=== PATIENT | female | born 1930 | race African-American/Black ===

== ENCOUNTER → 2016-09-13 | Outpatient (CLI) | payer MEDICARE ==
[~2016-09-13] MED LIST: AMLO5TAB2 PO; AMLO5TAB22 PO; ASPI1TAB69 PO; BRIM.15%O BOTH EYES; CHOL50006 PO; COUM4TAB7 PO; COUM5TAB PO; DIGO0.12 PO; DIGO50SO PO; ERGO1CAP10 PO; FOLI1 PO; FOLI1TAB4 PO; FURO40TA PO; LATA.005%O EACH EYE; LATA.005%O OU; LORA-474 PO; LORA2TAB7 PO; OMEP20CA5 PO; OMEP20TA PO; POTA-243 PO; POTA10TA8 PO; SERT25TA83 PO; ZOLO25TA PO
[2016-09-13 12:32] LABS: AUTOMATED NEUTROPHIL # 3.3 TH/MM3 (1.8-7.7); BASOPHIL % 0.2 % (0.0-2.0); EOSINOPHIL # 0.4 TH/MM3 (0-0.4); EOSINOPHIL % 5.5 % (0.0-4.0); HEMATOCRIT 35.7 % (35.0-46.0); LYMPH % 33.3 % (9.0-44.0); LYMPHOCYTE # 2.2 TH/MM3 (1.0-4.8); MEAN CORPUSCULAR HEMOGLOBIN 20.2 PG (27.0-34.0); MEAN CORPUSCULAR HGB CONC 30.5 % (32.0-36.0); MONO % 9.8 % (0.0-8.0); NEUT % 51.2 % (16.0-70.0); PLATELET COUNT 316 TH/MM3 (150-450); RED BLOOD COUNT 5.41 MIL/MM3 (4.00-5.30); WHITE BLOOD COUNT 6.5 TH/MM3 (4.0-11.0)
[2016-09-13 12:37] LABS: HEMO FLAGS AUTO DIFF
[2016-09-13 12:47] LABS: BACTERIA, URINE RARE /hpf; BLOOD, URINE NEG (NEG); GLUCOSE,URINE NEG (NEG); KETONE, URINE NEG (NEG); MUCUS URINE FEW /lpf (OCC); NITRITE,URINE NEG (NEG); SQUAMOUS EPITHELIAL CELL URINE 1 /hpf (0-5); URINE COLOR YELLOW (YELLW/STRAW)
[2016-09-13 12:54] LABS: BICARBONATE 29.3 MEQ/L (21.0-32.0); POTASSIUM 3.5 MEQ/L (3.5-5.1)
[2016-09-13 13:48] LABS: ACANTHOCYTES OCC (NORMAL)
[2016-09-13 13:49] LABS: KERATOCYTES 1+ (NORMAL); OVALOCYTES 1+ (NORMAL); PLATELET ESTIMATE SMEAR NORMAL (NORMAL); PLATELET MORPHOLOGY NORMAL (NORMAL); SCAN/DIFF AUTO DIFF CONFIRMED
== END ==
LOC: CPRE 11:13
PROVIDERS: ATTEND Obstetrics & Gynecology
DX: Z01.812 Encounter for preprocedural laboratory examination (principal); N84.0 Polyp of corpus uteri
CPT/HCPCS: 36415; 80048; 81001; 85025

== ENCOUNTER → 2016-09-19 | Day surgery (SDC) | payer MEDICARE ==
[~2016-09-19] VITALS: Ht 157.5 cm; Wt 67.5 kg
[~2016-09-19] MED LIST changes: -AMLO5TAB22 PO; -BRIM.15%O BOTH EYES; -CHOL50006 PO; -COUM4TAB7 PO; -COUM5TAB PO; +DEXAMETHASONE SOD PHOS 4 MG/ML VIAL ONE; -DIGO50SO PO; +DO NOT ADM ANY ANTICOAGULANT DRUGS XX PRN; +FAMOTIDINE 20 MG/2 ML VIAL ONE; -FOLI1 PO; +INSULIN HUMAN REGULAR 1,000 UNITS/10 ML VIAL SQ PRN; +LACTATED RINGER'S 1000 ML INJ 1,000 ML IV ONE; +LACTATED RINGER'S 1000 ML IV SCH; -LATA.005%O OU; -LORA-474 PO; +METOPROLOL TARTRATE 25 MG TAB PO PRN; +MIDAZOLAM HCL 2 MG/2 ML VIAL ONE; -OMEP20CA5 PO; +ONDANSETRON HCL 4 MG/2 ML VIAL IV PUSH ONE; +OXYTOCIN 10 UNIT/ML AMP ONE; +PHENYLEPH/NS 1000 MCG/10 ML SYR IV ONE; -POTA-243 PO; +PROPOFOL 200 MG/20 ML AMP IV ONE; +SODIUM CHLORID 0.9% 500 ML IV SCH; -ZOLO25TA PO; +ceFAZolin 2 GM PREMIX 50 ML IV SCH; +fentaNYL CITRATE 250 MCG/5 ML AMP ONE
[2016-09-19 07:11] VITALS: BP 142/78; PULSE 64; RESP 18; TEMP 98; O2SAT 98
[2016-09-19 13:10] VITALS: BP 163/69; PULSE 70; RESP 20; TEMP 97.4; O2SAT 94
--- NOTE | 2016-09-20 08:47 | MP ---
cc: MARV LOOMIS MD DATE OF SURGERY: 09/19/2016 PREOPERATIVE DIAGNOSIS Postmenopausal bleeding, thickened endometrium, stenotic cervix. POSTOPERATIVE DIAGNOSIS Postmenopausal bleeding, thickened endometrium, stenotic cervix. PROCEDURE Examination under anesthesia, hysteroscopy, D&C, polypectomy with MyoSure. SURGEON Dr. Loomis ANESTHESIA General via a laryngeal mask. FLUIDS 1000 cc crystalloids. ESTIMATED BLOOD LOSS Minimal. URINE OUTPUT 100 cc on straight cath prior to procedure. FINDINGS Uterus was approximately 8-10 weeks in size. No adnexal masses. At hysteroscopy two polypoid lesions were noted. DETAILS OF PROCEDURE The patient was taken to the operating room where general anesthesia was found to be adequate. She was then prepped and draped in the normal sterile fashion in the dorsal lithotomy position. The urinary bladder was emptied of urine using sterile technique. A speculum was placed in the vagina. A single-tooth tenaculum was applied to the anterior lip of the cervix. The cervix was gently dilated with Fuad dilators sizes 9 through 18. Hysteroscopy was then performed with saline to distend. Two polypoid lesions were noted and these were resected with the MyoSure device. A D&C was also done with the MyoSure device. The specimen was sent to pathology. The hysteroscope was removed. The single-tooth tenaculum was removed. Hemostasis was noted. The speculum was removed. The fluid deficit was 570 cc. The patient was awakened from anesthesia and transferred to the recovery room in stable condition. Pathology was endometrial curettings and the instrument count was correct. MD WAI Stern/CHAD /11:53 AM /8:33 AM
== END | disposition home or self-care (01) ==
LOC: HSDC 05:56
PROVIDERS: ATTEND Obstetrics & Gynecology
DX: N95.0 Postmenopausal bleeding (principal); R93.8 Abnormal findings on diagnostic imaging of other specified body structures; N88.2 Stricture and stenosis of cervix uteri
CPT/HCPCS: 00952; 58558; 86850; 86900; 86901; 88305; J0690; J1100; J2250; J2370; J2405; J2590; J3010; J7120

== ENCOUNTER 2017-12-24 00:47 | Inpatient (IN) | payer MEDICARE ==
[~2017-12-24] VITALS: Ht 162.6 cm; Wt 61.4 kg
[2017-12-24] VITALS (25 sets, daily range): BP systolic 96–149; BP diastolic 53–97; PULSE 92–148; RESP 18–30; TEMP 97–98.4; O2SAT 94–100
[~2017-12-24 00:47] MED LIST changes: -DEXAMETHASONE SOD PHOS 4 MG/ML VIAL ONE; -DO NOT ADM ANY ANTICOAGULANT DRUGS XX PRN; -FAMOTIDINE 20 MG/2 ML VIAL ONE; -INSULIN HUMAN REGULAR 1,000 UNITS/10 ML VIAL SQ PRN; -LACTATED RINGER'S 1000 ML INJ 1,000 ML IV ONE; -LACTATED RINGER'S 1000 ML IV SCH; -METOPROLOL TARTRATE 25 MG TAB PO PRN; -MIDAZOLAM HCL 2 MG/2 ML VIAL ONE; -OMEP20TA PO; +OMEP20TA93 PO; -ONDANSETRON HCL 4 MG/2 ML VIAL IV PUSH ONE; -OXYTOCIN 10 UNIT/ML AMP ONE; -PHENYLEPH/NS 1000 MCG/10 ML SYR IV ONE; -PROPOFOL 200 MG/20 ML AMP IV ONE; -SODIUM CHLORID 0.9% 500 ML IV SCH; -ceFAZolin 2 GM PREMIX 50 ML IV SCH; -fentaNYL CITRATE 250 MCG/5 ML AMP ONE
[2017-12-24] MEDS ORDERED: DILT120C9 PO (00:56)
[2017-12-24] MEDS ORDERED: WARF-23 PO (00:58)
[2017-12-24] MEDS ORDERED: RESP: ALBUTEROL 2.5 MG/IPRATROPIUM 0.5 MG NEB (SCH) NEB ONE ×2 (01:00→04:15)
[2017-12-24] MEDS: METOPROLOL TARTRATE 5 MG/5 ML VIAL IV PUSH PRN ×3 (01:01→02:02)
[2017-12-24 01:17] LABS: HEMATOCRIT 31.1 % (35.0-46.0); HEMOGLOBIN 9.4 GM/DL (11.6-15.3); MEAN CORPUSCULAR HEMOGLOBIN 18.1 PG (27.0-34.0); MEAN CORPUSCULAR HGB CONC 30.2 % (32.0-36.0); MEAN PLATELET VOLUME 9.2 FL (7.0-11.0); PLATELET COUNT 338 TH/MM3 (150-450); RED BLOOD COUNT 5.17 MIL/MM3 (4.00-5.30); RED CELL DISTRIBUTION WIDTH 22.2 % (11.6-17.2); WHITE BLOOD COUNT 5.8 TH/MM3 (4.0-11.0)
[2017-12-24 01:25] LABS: INTERNATIONAL NORMALIZED RATIO 1.5 RATIO; PROTHROMBIN TIME - PATIENT 14.9 SEC (9.8-11.6)
--- NOTE | 2017-12-24 01:25 | PD ---
HPI Chief Complaint: Respiratory Symptoms Time Seen by Provider: 00:52 Travel History International Travel<30 days: No Contact w/Intl Traveler<30days: No History of Present Illness HPI The patient is an 87 year old female who presents to the [facility] emergency department with a history of coughing suddenly began when she was eating an orange earlier this afternoon. She reports that she was able to cough up the piece of orange that seemed to get stuck in her throat, however she continued to have symptoms of shortness of breath. Ambulance services were called and the patient was noted to have a heart rate in the 180s. The patient has a history of atrial fibrillation. She reports that she has not been taking her rate lowering medication as she was told not to do so by her primary care physician, Dr. Aldrich. She is unsure why she was told not to take her medicine. The patient reports that she does have problems with chronic intermittent shortness of breath. She is unsure what respiratory diagnosis she has been given in the past. The patient reports that she did smoke in the past , however she quit smoking 40 years ago. The patient denies having any chest pain. The patient initially was refusing transport by ambulance services, however she then agreed when she nearly passed out. The patient was provided Cardizem 20 mg IV prior to arrival. The patient on arrival to this facility denies having any chest pain. She denies having any known recent fevers, neck pain, abdominal pain, vomiting, diarrhea, urinary symptoms, or neurologic symptoms. PFSH Past Medical History Narrative Medical The patient's past medical history is obtained from the patient as well as from reviewing the electronic medical record and consists of glaucoma, cataracts, rheumatoid arthritis, atrial fibrillation, acid reflux, hypertension, osteoporosis. Arthritis: Yes Anxiety: Yes Depression: Yes Heart Rhythm Problems: Yes ( AFIB) Cancer: No Cardiovascular Problems: Yes (irregular heart) Diabetes: No Diminished Hearing: No Endocrine: No Gastrointestinal Disorders: Yes (hx of stomach ulcers) Genitourinary: No Hepatitis: No Hiatal Hernia: No Hypertension: Yes Immune Disorder: Yes (rheumatoid arthritis) Medical other: Yes (LUMP RIGHT BREAST) Musculoskeletal: Yes (arthritis) Neurologic: No Psychiatric: Yes (ANXIETY AND DEPRESSION) Reproductive: No Respiratory: No Thyroid Disease: No Influenza Vaccination: Yes Menopausal: Yes Past Surgical History Narrative Surgical The patient's past surgical history is significant for venous stripping of her legs, history of shoulder excision of soft tissue tumor, eye surgery Abdominal Surgery: No AICD: No Cardiac Surgery: No Ear Surgery: No Endocrine Surgery: No Eye Surgery: Yes (RIGHT EYE CATARACT) Genitourinary Surgery: No Gynecologic Surgery: No Joint Replacement: No Neurologic Surgery: Yes (VEIN STRIPPING) Oral Surgery: No Pacemaker: No Thoracic Surgery: No Other Surgery: Yes (RIGHT SHOULDER TUMOR REMOVAL; LEFT LEG VEIN STRIPPING) Social History Alcohol Use: No Tobacco Use: No Substance Use: No Allergies-Medications (Allergen,Severity, Reaction): Coded Allergies: No Known Allergies (Verified Allergy, Unknown, 12/24/17) Reported Meds & Prescriptions Reported Meds & Active Scripts Active Reported Metoprolol Tartrate 50 Mg Tab 50 Mg PO BID Warfarin 5 Mg Tab 5 Mg PO DAILY Diltiazem ER 12 HR (Diltiazem HCl) 120 Mg Caper 180 Mg PO BID Sertraline (Sertraline HCl) 25 Mg Tab 25 Mg PO DAILY Lorazepam 2 Mg Tab 2 Mg PO BID Xalatan Opth Drops (Latanoprost) 0.005% Drops 1 Drop EACH EYE HS Furosemide 40 Mg Tab 40 Mg PO DAILY PRN Review of Systems General / Constitutional: No: Fever Eyes: No: Visual changes HENT: No: Headaches, Rhinorrhea, Congestion Cardiovascular: Positive: Tachycardia, Dyspnea on exertion, No: Chest Pain or Discomfort Respiratory: Positive: Cough, Shortness of Breath, Wheezing Gastrointestinal: No: Nausea, Vomiting, Diarrhea, Abdominal Pain Genitourinary: No: Dysuria Musculoskeletal: No: Pain Skin: No Rash Neurologic: No: Weakness Psychiatric: No: Depression Endocrine: No: Polydipsia Hematologic/Lymphatic: No: Easy Bruising Physical Exam Narrative General: The patient is a well-developed well-nourished female, short of breath on arrival with conversational dyspnea. Head and Neck exam: Head is normocephalic atraumatic. Eyes: EOMI, pupils are equal round and reactive to light. Nose: Midline septum with pink mucous membranes Mouth: Dentition unremarkable. Moist mucus membranes. Posterior oropharynx is not erythematous. No tonsillar hypertrophy. Uvula midline. Airway patent. Neck: No palpable lymphadenopathy. No nuchal rigidity. No thyromegaly. Cardiovascular: Irregularly irregular with a rate in the 140s-150s without murmurs, gallops, or rubs. Lungs: Expiratory wheezes are audible in bilateral lung, decreased breath sounds in the bases bilaterally. The patient has coarse upper airway transmission and auscultated posteriorly. The patient has accessory muscle use noted. The patient has tachypnea with conversational dyspnea, no paroxysmal abdominal breathing or tripoding. Abdomen: Soft, without tenderness to palpation in all 4 quadrants of the abdomen. No guarding, rebound, or rigidity. Normal bowel sounds are audible. No tenderness on palpation of McBurney's point. Extremities: No clubbing or cyanosis. The patient has trace pedal edema. 2+ pulses in all 4 extremities. No calf tenderness on palpation. Back: No spinous process tenderness to palpation. No costovertebral angle tenderness to palpation. Neurologic Exam: Grossly nonfocal. Skin Exam: No rash noted. Intact skin that is warm and dry. Data Data Last Documented VS Vital Signs Date Time Temp Pulse Resp B/P (MAP) Pulse Ox O2 Delivery O2 Flow Rate FiO2 12/24/17 02:43 117 20 110/53 (72) 98 Nasal Cannula 2.00 12/24/17 00:51 98.1 Orders Orders Electrocardiogram (12/24/17 00:52) Complete Blood Count With Diff (12/24/17 00:52) Comprehensive Metabolic Panel (12/24/17 00:52) Creatine Kinase (Cpk) (12/24/17 00:52) Ckmb (Isoenzyme) Profile (12/24/17 00:52) Troponin I (12/24/17 00:52) B-Type Natriuretic Peptide (12/24/17 00:52) Prothrombin Time / Inr (Pt) (12/24/17:52) Act Partial Throm Time (Ptt) (12/24/17 00:52) Lipase (12/24/17 00:52) Magnesium (Mg) (12/24/17 00:52) Thyroid Stimulating Hormone (12/24/17 00:52) Chest, Single Ap (12/24/17 00:52) Iv Access Insert/Monitor (12/24/17 00:52) Ecg Monitoring (12/24/17 00:52) Oximetry (12/24/17 00:52) Metoprolol Tartrate Inj (Lopressor Inj) (12/24/17 01:00) Albuterol-Ipratropium Neb (Duoneb Neb) (12/24/17 01:00) CKMB (12/24/17 01:05) CKMB% (12/24/17 01:05) Nitroglycerin 2% Oint (Nitroglycerin 2% (12/24/17 02:15) Aspirin Chew (Aspirin Chew) (12/24/17 02:15) Admit Order (Ed Use Only) (12/24/17 02:44) Labs Laboratory Tests Test 12/24/17 01:05 White Blood Count 5.8 TH/MM3 Red Blood Count 5.17 MIL/MM3 Hemoglobin 9.4 GM/DL Hematocrit 31.1 % Mean Corpuscular Volume 60.0 FL Mean Corpuscular Hemoglobin 18.1 PG Mean Corpuscular Hemoglobin Concent 30.2 % Red Cell Distribution Width 22.2 % Platelet Count 338 TH/MM3 Mean Platelet Volume 9.2 FL CBC Comment AUTO DIFF Differential Total Cells Counted 100 Neutrophils % (Manual) 91 % Lymphocytes % 7 % Monocytes % 2 % Neutrophils # (Manual) 5.3 TH/MM3 Differential Comment FINAL DIFF MANUAL Platelet Estimate NORMAL Platelet Morphology Comment NORMAL Acanthocytes 2+ Keratocytes OCC Prothrombin Time 14.9 SEC Prothromb Time International Ratio 1.5 RATIO Activated Partial Thromboplast Time 22.6 SEC Blood Urea Nitrogen 14 MG/DL Creatinine 1.09 MG/DL Random Glucose 191 MG/DL Total Protein 7.4 GM/DL Albumin 3.4 GM/DL Calcium Level 8.4 MG/DL Magnesium Level 2.0 MG/DL Alkaline Phosphatase 136 U/L Aspartate Amino Transf (AST/SGOT) 56 U/L Alanine Aminotransferase (ALT/SGPT) 68 U/L Total Bilirubin 0.6 MG/DL Sodium Level 142 MEQ/L Potassium Level 3.5 MEQ/L Chloride Level 107 MEQ/L Carbon Dioxide Level 20.5 MEQ/L Anion Gap 15 MEQ/L Estimat Glomerular Filtration Rate 58 ML/MIN Total Creatine Kinase 166 U/L Creatine Kinase MB 7.6 NG/ML Troponin I 0.59 NG/ML B-Type Natriuretic Peptide 466 PG/ML Lipase 107 U/L Thyroid Stimulating Hormone 3rd Gen 1.770 uIU/ML MDM Medical Decision Making Medical Screen Exam Complete: Yes Emergency Medical Condition: Yes Medical Record Reviewed: Yes Differential Diagnosis A. fib with RVR, versus COPD exacerbation, versus congestive heart failure, versus pneumonia, versus aspiration Narrative Course During the course of the patient's emergency department visit, the patient's history, examination, and differential diagnosis were reviewed with the patient. The patient was placed on a shelter monitor with oximetry and frequent blood pressure monitoring. The patient had IV access obtained and blood work sent for analysis. The patient had a EKG done on arrival that shows A. fib with RVR, heart rate of 153, QRS duration 71 ms, QTC [address] segment elevation is noted. T waves are inverted in V5 The patient was initially provided a DuoNeb x1. The patient was given metoprolol 5 mg every 5 minutes x3 as needed sustained heart rate greater than 110. The patient's laboratory studies were reviewed and remarkable for White count of 5.8, hemoglobin 9.4, platelets 338 with 91 neutrophils, lymphocytes 7, CMP is remarkable for CO2 of 20.5, BUN 14, creatinine 1.09, GFR 58, glucose 191, AST 56, ALT 68, alk phos 136, CPK 166, troponin I is elevated at 0.59. Lipase 107, TSH within normal limits, BNP is elevated at 466. Given the patient's elevated troponin the patient was given aspirin 324 mg p.o. The patient was given nitroglycerin 1 inch the chest wall. She denies having any chest pain currently. PT 14.9, INR 1.5, PTT 22.6. Radiology studies were reviewed and remarkable for Last Impressions Chest X-Ray 12/24/17 0052 Signed Impressions: CONCLUSION: 1. Enlarged cardiac silhouette. 2. Mild peripheral lower lung zone opacity may represent chronic lung disease, scarring, or atelectasis. After the administration of metoprolol IV the patient's heart rate was ranging between the 90s-110s. The patient's shortness of breath improved. While the patient was being observed in the emergency department the patient had a recurrence of shortness of breath. The patient was given another DuoNeb x1. The patient additionally reports regularly taking Ativan 2 mg p.o. every 12 hours for anxiety. She reports feeling anxious and is requesting Ativan. The patient was given Ativan 1 mg p.o. x1. The patient's results were discussed with the patient, including the plan of care. I explained that further testing and/ or monitoring is indicated based on the patient's history, examination, and/ or laboratory findings. Therefore, I recommended admission for additional evaluation. The patient expressed understanding and was agreeable with this plan. The patient was admitted to the hospital in guarded condition and sent to a bed under the care of the [facility] Critical Care Narrative Aggregate critical care time was 34 minutes. Time to perform other separately billable procedures was not included in the critical care time. My time did not include minutes spent treating any other patients simultaneously or on activities that did not directly contribute to the patient's treatment. The services I provided to this patient were to treat and/or prevent clinically significant deterioration that could result in: Cardiovascular collapse from cardiac arrhythmia, versus respiratory failure I provided critical care services requiring my management, as noted below: Chart data review, documentation time, medication orders and management, vital sign assessments/reviewing monitor data, ordering and reviewing lab tests, ordering and interpreting/reviewing x-rays and diagnostic studies, care of the patient and discussion of the patient with the admitting physicians. Physician Communication Physician Communication The patient's case including history, pertinent physical examination findings, and laboratory studies were discussed with Dr. Baires. It was agreed that the patient would be admitted to the [facility]. Diagnosis Primary Impression: Atrial fibrillation with RVR Additional Impression: Elevation of cardiac enzymes Admitting Information Admitting Physician Requests: Admit Elizabeth Ryan MD Dec 24, 2017 01:25
[2017-12-24] MEDS ORDERED: METO50TA PO (01:26)
--- NOTE | 2017-12-24 01:27 | RADRPT ---
EXAM DATE: 12/24/2017 1:18 AM EDT AGE/SEX: 87 years / Female INDICATIONS: Shortness of breath. CLINICAL DATA: This is the patient's initial encounter. Patient reports that signs and symptoms have been present for 1 day and indicates a pain score of 0/10. MEDICAL/SURGICAL HISTORY: . Afib. None. COMPARISON: No prior exams available for comparison. FINDINGS: Single AP view of the chest. Moderate cardiac silhouette enlargement. Mild bilateral lower lung zone opacity at the periphery. No evidence of pleural effusion or pneumothorax. CONCLUSION: 1. Enlarged cardiac silhouette. 2. Mild peripheral lower lung zone opacity may represent chronic lung disease, scarring, or atelecta sis. Electronically signed by: David Stokes MD 12/24/2017 1:25 AM EDT
[2017-12-24 01:40] LABS: ALBUMIN 3.4 GM/DL (3.4-5.0); AST (GOT) 56 U/L (15-37); BICARBONATE 20.5 MEQ/L (21.0-32.0); BLOOD UREA NITROGEN 14 MG/DL (7-18); CALCIUM 8.4 MG/DL (8.5-10.1); CHLORIDE 107 MEQ/L (98-107); CREATININE 1.09 MG/DL (0.50-1.00); GLOMERULAR FILTRATION RATE 58 ML/MIN (>89); GLUCOSE,RANDOM 191 MG/DL (74-106); SODIUM (NA) 142 MEQ/L (136-145)
[2017-12-24 01:51] LABS: ALKALINE PHOSPHATASE 136 U/L (45-117); ALT (GPT) 68 U/L (10-53); TOTAL BILIRUBIN ADULT 0.6 MG/DL (0.2-1.0); TOTAL PROTEIN 7.4 GM/DL (6.4-8.2); TROPONIN I 0.59 NG/ML (0.02-0.05)
[2017-12-24 02:14] LABS: LYMPHOCYTES 7 % (9-44); MONOCYTES 2 % (0-8); NEUTROPHIL # MANUAL DIFF 5.3 TH/MM3 (1.8-7.7); POLYS (SEG NEUTROPHILS) 91 % (16-70)
[2017-12-24] MEDS ORDERED: ASPIRIN 81 MG CHEW TAB CHEW ONE (02:15)
[2017-12-24] MEDS ORDERED: NITROGLYCERIN 2% OINT 1 GM PACKET TOPICAL ONE (02:15)
[2017-12-24 02:17] LABS: ACANTHOCYTES 2+ (NORMAL); KERATOCYTES OCC (NORMAL)
[2017-12-24] MEDS ORDERED: METOPROLOL TARTRATE 25 MG TAB PO SCH ×2 (03:00→08:00)
[2017-12-24] MEDS ORDERED: SODIUM CHLORIDE 0.9% FLUSH 10 ML FLUSH IV FLUSH PRN (03:00)
[2017-12-24] MEDS ORDERED: LORazepam 1 MG TAB PO ONE (04:45)
--- NOTE | 2017-12-24 07:57 | HHI.HP ---
HPI Service [facility] Hospitalists Primary Care Physician Kareem Aldrich MD Admission Diagnosis Afib with RVR, elevated troponin Chief Complaint: cough Travel History International Travel<30 Days: No Contact w/Intl Traveler <30 Da: No Traveled to Known Affected Are: No History of Present Illness Pt is 87 yo woman who says she was recently diagnosed with breast ca in right breast and is awaiting lumpectomy. She describes more sob and intermittent cp's and says she was seeing her park guard Dr Moralez who was going to "run some tests". Last night she failed to chew up an orange and started choking. When EMS arrived she was in afib/rvr 180s. IV diltiazem given and sbp 80s. In ED she was given 3 doses iv metoprolol and one po dose. her ckmb and trop was elevated. She acknowledges intermittent cp's and sob at times. 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 lipoma removal. anxiety htn postmenopausal bleeding microcytic anemia Reported Medications diltiazem 180mg daily metoprolol 50mg bid coumadin 5mg daily ativan 1mg bid prn sertraline 25mg daily lasix 40mg qod with kcl 10meq Allergies: Coded Allergies: No Known Allergies (Verified Allergy, Unknown, 12/24/17) Family History nc Social History no etoh no tob x 40yrs Physical Exam Vital Signs nad oriented heart irreg. tachy lung cta abd s/nt ext no edema Vital Signs Date Time Temp Pulse Resp B/P (MAP) Pulse Ox O2 Delivery O2 Flow Rate FiO2 12/24/17 07:44 95 21 12/24/17 06:07 12/24/17 05:12 118 18 96/72 (80) 96 Nasal Cannula 2.00 12/24/17 04:06 97 Nasal Cannula 2.00 12/24/17 03:33 108 18 97 Nasal Cannula 2.00 12/24/17 03:30 128 18 102/86 (91) 96 Nasal Cannula 2.00 12/24/17 02:43 117 20 110/53 (72) 98 Nasal Cannula 2.00 12/24/17 02:24 108 20 105/65 (78) 98 Nasal Cannula 2.00 12/24/17 02:18 101 18 105/66 (79) 97 Nasal Cannula 2.00 12/24/17 02:02 125 22 115/78 (90) 98 Nasal Cannula 2.00 12/24/17 01:28 114 26 117/79 (92) 99 Nasal Cannula 2.00 12/24/17 01:04 95 Nasal Cannula 2.00 12/24/17 01:04 120 12/24/17 00:51 98.1 148 30 149/97 (114) 94 Nasal Cannula 2.00 Laboratory Laboratory Tests Test 12/24/17 01:05 White Blood Count 5.8 Red Blood Count 5.17 Hemoglobin 9.4 Hematocrit 31.1 Mean Corpuscular Volume 60.0 Mean Corpuscular Hemoglobin 18.1 Mean Corpuscular Hemoglobin Concent 30.2 Red Cell Distribution Width 22.2 Platelet Count 338 Mean Platelet Volume 9.2 CBC Comment AUTO DIFF Differential Total Cells Counted 100 Neutrophils % (Manual) 91 Lymphocytes % 7 Monocytes % 2 Neutrophils # (Manual) 5.3 Differential Comment FINAL DIFF MANUAL Platelet Estimate NORMAL Platelet Morphology Comment NORMAL Acanthocytes 2+ Keratocytes OCC Prothrombin Time 14.9 Prothromb Time International Ratio 1.5 Activated Partial Thromboplast Time 22.6 Blood Urea Nitrogen 14 Creatinine 1.09 Random Glucose 191 Total Protein 7.4 Albumin 3.4 Calcium Level 8.4 Magnesium Level 2.0 Alkaline Phosphatase 136 Aspartate Amino Transf (AST/SGOT) 56 Alanine Aminotransferase (ALT/SGPT) 68 Total Bilirubin 0.6 Sodium Level 142 Potassium Level 3.5 Chloride Level 107 Carbon Dioxide Level 20.5 Anion Gap 15 Estimat Glomerular Filtration Rate 58 Total Creatine Kinase 166 Creatine Kinase MB 7.6 Troponin I 0.59 B-Type Natriuretic Peptide 466 Lipase 107 Thyroid Stimulating Hormone 3rd Gen 1.770 Result Diagram: 12/24/1710412/24/17 010 Caprini VTE Risk Assessment Caprini VTE Risk Assessment: Mod/High Risk (score >= 2) Caprini Risk Assessment Model Point Value = 1 Point Value = 2 Point Value = 3 Point Value = 5 Age 41-60 Minor surgery BMI > 25 kg/m2 Swollen legs Varicose veins or History of unexplained or recurrent spontaneous Oral contraceptives or hormone replacement Sepsis (< 1 month) Serious lung disease, including pneumonia (< 1 month) Abnormal pulmonary function Acute myocardial infarction Congestive heart failure (< 1 month) History of inflammatory bowel disease Medical patient at bed rest Age 61-74 Arthroscopic surgery Major open surgery (> 45 min) Laparoscopic surgery (> 45 min) Malignancy Confined to bed (> 72 hours) Immobilizing plaster cast Central venous access Age >= 75 History of VTE Family history of VTE Factor V Leiden Prothrombin [id number] Lupus anticoagulant Anticardiolipin antibodies Elevated serum homocysteine Heparin-induced thrombocytopenia Other congenital or acquired thrombophilia Stroke (< 1 month) Elective arthroplasty Hip, pelvis, or leg fracture Acute spinal cord injury (< 1 month) Prophylaxis Regimen Total Risk Factor Score Risk Level Prophylaxis Regimen 0-1 Low Early ambulation 2 Moderate Order ONE of the following: *Sequential Compression Device (SCD) *Heparin 5000 units SQ BID 3-4 Higher Order ONE of the following medications: *Heparin 5000 units SQ TID *Enoxaparin/Lovenox 40 mg SQ daily (WT < 150 kg, CrCl > 30 mL/min) *Enoxaparin/Lovenox 30 mg SQ daily (WT < 150 kg, CrCl > 10-29 mL/min) *Enoxaparin/Lovenox 30 mg SQ BID (WT < 150 kg, CrCl > 30 mL/min) AND/OR *Sequential Compression Device (SCD) 5 or more Highest Order ONE of the following medications: *Heparin 5000 units SQ TID (Preferred with Epidurals) *Enoxaparin/Lovenox 40 mg SQ daily (WT < 150 kg, CrCl > 30 mL/min) *Enoxaparin/Lovenox 30 mg SQ daily (WT < 150 kg, CrCl > 10-29 mL/min) *Enoxaparin/Lovenox 30 mg SQ BID (WT < 150 kg, CrCl > 30 mL/min) AND *Sequential Compression Device (SCD) Assessment and Plan Problem List: (1) Atrial fibrillation with RVR ICD Codes: I48.91 - Unspecified atrial fibrillation Status: Acute Plan: 1. afib/rvr after coughing on an orange. hypotensive on arrival 2. 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 worsening microcytic anemia. s/p EUA/hysteroscopy, D/C, polypectomy for post menopausal bleeding in 2017 4. anxiety plan will consult her park guard. has upcoming surgery for breast ca. will check [facility] EHR repeat cardiac enzymes are pending. resume her bb and ccb as bp allows for afib echo pending. check iron studies resume coumadin. check inr. subtherapeutic. (2) Elevation of cardiac enzymes ICD Codes: R74.8 - Abnormal levels of other serum enzymes Status: Acute (3) Microcytic anemia ICD Codes: D50.9 - Iron deficiency anemia, unspecified Status: Chronic (4) Breast CA ICD Codes: C50.919 - Malignant neoplasm of unspecified site of unspecified female breast Status: Chronic (5) Anxiety ICD Codes: F41.9 - Anxiety disorder, unspecified Status: Chronic Physician Certification 2 Midnight Certification Type: Admission for Inpatient Services Order for Inpatient Services 3The services are ordered in accordance with Medicare regulations or non- Medicare payer requirements, as applicable. In the case of services not specified as inpatient-only, they are appropriately provided as inpatient services in accordance with the 2-midnight benchmark. Estimated LOS (days): 3 3 days is the estimated time the patient will need to remain in the hospital, assuming treatment plan goals are met and no additional complications. Post-Hospital Plan: Home Ruddy Mcdowell MD Dec 24, 2017 07:57
[2017-12-24] MEDS ORDERED: LORazepam 1 MG TAB PO PRN (08:00)
[2017-12-24] MEDS: SERTRALINE HCL 50 MG TAB PO SCH (09:03)
[2017-12-24] MEDS: SODIUM CHLORIDE 0.9% FLUSH 10 ML FLUSH IV FLUSH SCH ×2 (09:05→21:45)
[2017-12-24] MEDS ORDERED: DIGOXIN 0.5 MG/2 ML VIAL IVS STA (11:44)
--- NOTE | 2017-12-24 12:04 | MB ---
cc: Jaun Colvin MD DATE: 12/24/2017 INDICATION: Atrial fibrillation. HISTORY OF PRESENT ILLNESS: This is an 87-year-old female who follows with Dr. Moralez, my partner, in the outpatient setting. She recently was diagnosed with breast cancer in the right breast and is waiting to undergo lumpectomy. She last saw Dr. Moralez in the office on 12/18/2017. At that time, she was noted to be in atrial fibrillation with rapid ventricular rate and her metoprolol was titrated. She now presents to the emergency department with episodes of palpitations after choking on an orange. She was noted to have atrial fibrillation with rapid rates as high as 180 beats per minute. She was given intravenous diltiazem, which dropped her blood pressure down to systolic 80s mmHg. She has since been given some metoprolol. Heart rate looked slightly better, but blood pressure is on the low side. She is quite short of breath. PAST MEDICAL HISTORY: Atrial fibrillation, hypertension, hyperlipidemia, breast cancer, lipoma removal, anxiety, hypertension. REPORTED MEDICATIONS: 1. Diltiazem. 2. Metoprolol. 3. Coumadin. 4. Ativan. 5. Sertraline. 6. Lasix. ALLERGIES: NO KNOWN DRUG ALLERGIES. FAMILY HISTORY: Denies any history of early coronary disease or sudden cardiac . SOCIAL HISTORY: Denies any alcohol or drug use. Report no tobacco use for the last 40 years. REVIEW OF SYSTEMS: A 12-point review of systems was performed and is negative unless as otherwise noted in the history of present illness. PHYSICAL EXAMINATION: VITAL SIGNS: Temperature is 97, heart rate is anywhere from 108-134 beats per minute. Blood pressure is 96/72 mmHg. GENERAL: Alert and oriented x 3 in no acute distress. HEENT: Exam shows pupils reactive to light and accommodation. Extraocular movements are intact. NECK: No elevation of jugular venous distention. No thyromegaly. No lymphadenopathy, no carotid bruits. LUNGS: Shows bibasilar minimal crackles. CARDIOVASCULAR: Irregularly irregular with a 2/6 holosystolic murmur at the apex radiating to the axilla. ABDOMEN: Nontender, nondistended with good bowel sounds. No hepatosplenomegaly. EXTREMITIES: Show trace edema. No clubbing or cyanosis. NEUROLOGIC: Cranial nerves intact. Motor and sensory grossly intact. LABORATORIES: Sodium 142, potassium 3.5, BUN is 14, creatinine is 1.09, troponin 0.59. AST 56, ALT 68. B-type natriuretic peptide 466. INR is 1.5. WBC 5.0, hemoglobin is 9.4, platelet counts 338. Electrocardiogram. Atrial fibrillation, rapid ventricular rate, nonspecific ST-T wave abnormalities. Echocardiogram. Her last echocardiogram was performed 09/10/2014 showed normal left ventricular systolic function with an ejection fraction of 55-60 percent. There is moderate tricuspid, moderate mitral regurgitation and mild to moderate pulmonary hypertension. ASSESSMENT: 1. Atrial fibrillation with rapid ventricular rate. 2. 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 3. Elevated troponin. 4. Hypotension. PLAN: We will repeat transthoracic echocardiogram. She does have moderate valve disease and left atrial enlargement. This is likely one of the major precipitating factors to her atrial fibrillation. She is also short of breath. She does have moderate valve disease documented in 2014 and minimal bibasilar crackles. Her creatinine is normal. We will give her a dose of Lasix to see if we can take a little bit of fluid off. She is currently on diltiazem 30 mg q.i.d. and metoprolol 25 mg q. 8 hours, but her blood pressure is on the low side and will not tolerate much in terms of titration. We will add digoxin. Monitor digoxin levels closely. Troponin is likely demand mediated. Given her age and her current status, I would like to avoid any potential ischemic workup unless the troponin trends up further. We can always consider doing even an outpatient evaluation, but will hopefully hold off requiring any ischemic workup at this time until she makes further recovery. Jaun Colvin MD EMILEE/DL , 11:43 AM , 12:04 PM
[2017-12-24] MEDS: FUROSEMIDE 40 MG/4 ML VIAL IV PUSH SCH (13:01)
[2017-12-24] MEDS: DILTIAZEM HCL 30 MG TAB PO SCH ×3 (13:02→22:40)
[2017-12-24 13:41] LABS: ALBUMIN 3.2 GM/DL (3.4-5.0); ALKALINE PHOSPHATASE 114 U/L (45-117); ALT (GPT) 81 U/L (10-53); AST (GOT) 83 U/L (15-37); BLOOD UREA NITROGEN 18 MG/DL (7-18); CALCIUM 8.6 MG/DL (8.5-10.1); CHLORIDE 107 MEQ/L (98-107); CREATININE 1.23 MG/DL (0.50-1.00); GLOMERULAR FILTRATION RATE 50 ML/MIN (>89); GLUCOSE,RANDOM 107 MG/DL (74-106); SODIUM (NA) 141 MEQ/L (136-145); TOTAL BILIRUBIN ADULT 0.6 MG/DL (0.2-1.0); TOTAL PROTEIN 7.1 GM/DL (6.4-8.2)
[2017-12-24 13:43] LABS: TROPONIN I 2.49 NG/ML (0.02-0.05)
[2017-12-24] MEDS ORDERED: DIGOXIN 0.5 MG/2 ML VIAL IV PUSH ONE (14:45)
--- NOTE | 2017-12-24 14:49 | EKG ---
Date Performed: 12/24/2017 Time Performed: 00:51:50 PTAGE: 87 years EKG: ATRIAL FIBRILLATION WITH RAPID VENTRICULAR RESPONSE WITH ABERRANT CONDUCTION OR VENTRICULAR PREMATURE COMPLEXES BORDERLINE RIGHT AXIS DEVIATION NONSPECIFIC T-WAVE ABNORMALITY ABNORMAL RHYTHM E CG Since the PREVIOUS TRACING , no significant change noted PREVIOUS TRACIN06/02/2009 @22.27 DOCTOR: Shawn John Interpretating Date/Time 12/24/2017 14:47:31
[2017-12-24 15:01] LABS: HEMATOCRIT 31.6 % (35.0-46.0); HEMOGLOBIN 9.8 GM/DL (11.6-15.3); MEAN CELL VOLUME 60.5 FL (80.0-100.0); MEAN CORPUSCULAR HEMOGLOBIN 18.7 PG (27.0-34.0); MEAN CORPUSCULAR HGB CONC 30.9 % (32.0-36.0); MEAN PLATELET VOLUME 9.2 FL (7.0-11.0); PLATELET COUNT 273 TH/MM3 (150-450); RED BLOOD COUNT 5.23 MIL/MM3 (4.00-5.30); RED CELL DISTRIBUTION WIDTH 22.2 % (11.6-17.2); WHITE BLOOD COUNT 6.2 TH/MM3 (4.0-11.0)
[2017-12-24 15:23] LABS: % SATURATION IRON PROFILE 4.5 % (20-50); IRON (FE) 20 MCG/DL (50-170); TOTAL IRON BINDING CAPACITY 442 MCG/DL (250-450)
[2017-12-24 15:26] LABS: FERRITIN 18 NG/ML (8-252)
[2017-12-24] MEDS: WARFARIN SOD 5 MG TAB PO SCH (16:00)
[2017-12-24 16:29] LABS: TROPONIN I 2.56 NG/ML (0.02-0.05)
[2017-12-25] VITALS (28 sets, daily range): BP systolic 110–134; BP diastolic 69–93; PULSE 85–124; RESP 17–24; TEMP 97–98.8; O2SAT 92–99
[2017-12-25] MEDS: DILTIAZEM HCL 30 MG TAB PO SCH (04:53)
[2017-12-25 06:40] LABS: INTERNATIONAL NORMALIZED RATIO 1.6 RATIO; PROTHROMBIN TIME - PATIENT 16.3 SEC (9.8-11.6)
[2017-12-25 06:49] LABS: BICARBONATE 24.2 MEQ/L (21.0-32.0); CALCIUM 8.2 MG/DL (8.5-10.1); CREATININE 0.92 MG/DL (0.50-1.00)
[2017-12-25 07:03] LABS: DIGOXIN 1.5 NG/ML (0.8-2.0)
--- NOTE | 2017-12-25 07:49 | HHI.PR ---
Subjective Remarks feels much better. ambulated to bathroom w/out cp/sob Objective Vitals heart irreg lung cta abd s/nt ext no edema Vital Signs Date Time Temp Pulse Resp B/P (MAP) Pulse Ox O2 Delivery O2 Flow Rate FiO2 12/25/17 07:00 95 Room Air 12/25/17 07:00 120 12/25/17 07:00 97.5 124 20 122/86 (98) 95 12/25/17 05:00 93 12/25/17 04:15 97.7 88 17 128/93 (105) 92 12/25/17 04:00 103 12/25/17 03:00 88 12/25/17 02:00 93 12/25/17 01:00 97 12/25/17 00:00 85 12/25/17 00:00 98.8 97 18 128/78 (95) 99 12/24/17 23:00 103 12/24/17 22:00 98 12/24/17 21:00 92 12/24/17 20:00 95 12/24/17 20:00 98.4 93 18 136/76 (96) 98 12/24/17 19:00 104 12/24/17 19:00 98 Room Air 12/24/17 18:00 104 12/24/17 17:26 97.0 93 18 147/89 (108) 99 12/24/17 17:15 112 12/24/17 16:36 97 12/24/17 16:30 98 Room Air 12/24/17 14:00 106 12/24/17 13:42 99 Nasal Cannula 2.00 12/24/17 12:00 116 12/24/17 12:00 98.0 116 25 117/57 (77) 100 12/24/17 10:00 120 12/24/17 08:00 95 Nasal Cannula 2.00 12/24/17 08:00 97.8 126 30 100/70 (80) 100 12/24/17 08:00 134 Result Diagram: 12/24/17 1331 12/25/17 0533 A/P Problem List: (1) Atrial fibrillation with RVR ICD Codes: I48.91 - Unspecified atrial fibrillation Status: Acute Plan: 1. afib/rvr after coughing on an orange. hypotensive on arrival elevated troponin. initially felt to be demand from afib/rvr. but ?nstemi 2. 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 worsening microcytic anemia. s/p EUA/hysteroscopy, D/C, polypectomy for post menopausal bleeding in 2017 4. anxiety plan consulted her medical social worker who is assisting with rate control and ?ischemic w/up bb stopped due to hypotension. cont ccb and dig. titrate up as still with rvr. cont asa cont coumadin. check inr echo pending. check iron studies. venofer if iron def. (2) Elevation of cardiac enzymes ICD Codes: R74.8 - Abnormal levels of other serum enzymes Status: Acute (3) Microcytic anemia ICD Codes: D50.9 - Iron deficiency anemia, unspecified Status: Chronic (4) Breast CA ICD Codes: C50.919 - Malignant neoplasm of unspecified site of unspecified female breast Status: Chronic (5) Anxiety ICD Codes: F41.9 - Anxiety disorder, unspecified Status: Chronic Ruddy Mcdowell MD Dec 25, 2017 07:49
--- NOTE | 2017-12-25 07:50 | PD.CARD.PN ---
Subjective Subjective Remarks feeling well overnight, no chest pain, sob or palpitations. (Jess Singh) Objective Medications Current Medications Medications (Trade) Dose Ordered Sig/Antonella Route Start Time Stop Time Status Last Admin (NS Flush) 2 ml UNSCH PRN IV FLUSH 12/24/17 03:00 (NS Flush) 2 ml BID IV FLUSH 12/24/17 09:00 12/24/17 21:45 (Cardizem) 30 mg Q6HR PO 12/24/17 12:00 12/25/17 04:53 (Ativan) 1 mg Q12H PRN PO 12/24/17 08:00 (Zoloft) 25 mg DAILY PO 12/24/17 09:00 12/24/17 09:03 (Coumadin) 5 mg DAILY@1600 PO 12/24/17 16:00 12/24/17 16:00 (Lasix Inj) 20 mg DAILY IV PUSH 12/24/17 11:45 12/24/17 13:01 (Lanoxin) 0.125 mg DAILY PO 12/25/17 09:00 (Aspirin) 325 mg DAILY PO 12/25/17 09:00 Vital Signs / I&O Vital Signs Date Time Temp Pulse Resp B/P (MAP) Pulse Ox O2 Delivery O2 Flow Rate FiO2 12/25/17 07:00 95 Room Air 12/25/17 07:00 120 12/25/17 07:00 97.5 124 20 122/86 (98) 95 12/25/17 05:00 93 12/25/17 04:15 97.7 88 17 128/93 (105) 92 12/25/17 04:00 103 12/25/17 03:00 88 12/25/17 02:00 93 12/25/17 01:00 97 12/25/17 00:00 85 12/25/17 00:00 98.8 97 18 128/78 (95) 99 12/24/17 23:00 103 12/24/17 22:00 98 12/24/17 21:00 92 12/24/17 20:00 95 12/24/17 20:00 98.4 93 18 136/76 (96) 98 12/24/17 19:00 104 12/24/17 19:00 98 Room Air 12/24/17 18:00 104 12/24/17 17:26 97.0 93 18 147/89 (108) 99 12/24/17 17:15 112 12/24/17 16:36 97 12/24/17 16:30 98 Room Air 12/24/17 14:00 106 12/24/17 13:42 99 Nasal Cannula 2.00 12/24/17 12:00 116 12/24/17 12:00 98.0 116 25 117/57 (77) 100 12/24/17 10:00 120 12/24/17 08:00 95 Nasal Cannula 2.00 12/24/17 08:00 97.8 126 30 100/70 (80) 100 12/24/17 08:00 134 I/O 12/24/17 12/24/17 12/24/17 12/25/17 12/25/17 12/25/17 07:00 15:00 23:00 07:00 15:00 23:00 Intake Total 780 ml 200 ml Output Total 500 ml 200 ml Balance 280 ml 0 ml Intake Oral 760 ml 200 ml IV Total 20 ml Output Urine Total 500 ml 200 ml Physical Exam GENERAL: SKIN: Warm and dry. HEAD: Atraumatic. Normocephalic. EYES: Pupils equal and round. No scleral icterus. No injection or drainage. ENT: No nasal bleeding or discharge. NECK: Trachea midline. No JVD. CARDIOVASCULAR: tachycardic, irregular rate and rhythm, +systolic murmur RESPIRATORY: No accessory muscle use. Clear to auscultation. Breath sounds equal bilaterally. GASTROINTESTINAL: Abdomen soft, non-tender, nondistended. MUSCULOSKELETAL: Extremities without clubbing, cyanosis, or edema. No obvious deformities. NEUROLOGICAL: Awake and alert. No obvious cranial nerve deficits. Normal speech. PSYCHIATRIC: Appropriate mood and affect; insight and judgment normal. Laboratory Laboratory Tests Test 12/24/17 12:15 12/24/17 13:31 12/25/17 05:33 Blood Urea Nitrogen 18 MG/DL 16 MG/DL Creatinine 1.23 MG/DL 0.92 MG/DL Random Glucose 107 MG/DL 104 MG/DL Total Protein 7.1 GM/DL Albumin 3.2 GM/DL Calcium Level 8.6 MG/DL 8.2 MG/DL Alkaline Phosphatase 114 U/L Aspartate Amino Transf (AST/SGOT) 83 U/L Alanine Aminotransferase (ALT/SGPT) 81 U/L Total Bilirubin 0.6 MG/DL Sodium Level 141 MEQ/L 143 MEQ/L Potassium Level 4.6 MEQ/L 4.2 MEQ/L Chloride Level 107 MEQ/L 108 MEQ/L Carbon Dioxide Level 21.0 MEQ/L 24.2 MEQ/L Anion Gap 13 MEQ/L 11 MEQ/L Estimat Glomerular Filtration Rate 50 ML/MIN 70 ML/MIN Troponin I 2.49 NG/ML 2.56 NG/ML White Blood Count 6.2 TH/MM3 Red Blood Count 5.23 MIL/MM3 Hemoglobin 9.8 GM/DL Hematocrit 31.6 % Mean Corpuscular Volume 60.5 FL Mean Corpuscular Hemoglobin 18.7 PG Mean Corpuscular Hemoglobin Concent 30.9 % Red Cell Distribution Width 22.2 % Platelet Count 273 TH/MM3 Mean Platelet Volume 9.2 FL Iron Level 20 MCG/DL Total Iron Binding Capacity 442 MCG/DL Percent Iron Saturation 4.5 % Ferritin 18 NG/ML Total Creatine Kinase 284 U/L Creatine Kinase MB 21.3 NG/ML Creatine Kinase MB % 7.5 % Prothrombin Time 16.3 SEC Prothromb Time International Ratio 1.6 RATIO Digoxin Level 1.5 NG/ML (Jess Singh) Assessment and Plan Problem List: (1) Atrial fibrillation with RVR ICD Codes: I48.91 - Unspecified atrial fibrillation Status: Acute Assessment and Plan 87 yo AAF with HTN, HLD, mitral regurgitation and afib presented with anterior chest discomfort and palpitations found to be in afib rvr. atrial fibrillation- rate remains elevated. increase Cardizem to 60mg q 6 hours , cont digoxin 0.125mg digoxin level ok troponins increasin.5-->2.49-->2.56: rate related vs. ischemic? cont warfarin, INR subtherapeutic 1.5 echo ordered consider ischemic workup. (Jess Singh) Assessment and Plan titrate CCB as BP allows dig 0.125. dig level 1.5. Cr ok. troponin elevated. no CP. no EKG changes. on coumadin. given age and other factors, after lengthy discussion with the patient, she does not wish to proceed with ischemic workup at this time. continue guideline directed medical therapy await echo results no BB due to BP no JEFFREY due to BP no nitrate due to lack of CP if we can get HR < 100 consistently, then DC planning (Jaun Colvin MD) Jess Singh Dec 25, 2017 07:50 Jaun Colvin MD Dec 25, 2017 08:49
[2017-12-25] MEDS: DIGOXIN 0.125 MG TAB PO SCH (08:49)
[2017-12-25] MEDS: SERTRALINE HCL 50 MG TAB PO SCH (08:49)
[2017-12-25] MEDS: ASPIRIN 325 MG TAB PO SCH (08:49)
[2017-12-25] MEDS: SODIUM CHLORIDE 0.9% FLUSH 10 ML FLUSH IV FLUSH SCH ×2 (08:50→21:00)
[2017-12-25] MEDS: FUROSEMIDE 40 MG/4 ML VIAL IV PUSH SCH (08:52)
[2017-12-25] MEDS ORDERED: IRON SUCROSE INJ 100 MG in SODIUM CHLORIDE 0.9% INJ 100 ML IV ONE (09:00)
[2017-12-25] MEDS: DILTIAZEM HCL 60 MG TAB PO SCH ×3 (12:29→23:58)
[2017-12-25] MEDS: WARFARIN SOD 5 MG TAB PO SCH (15:46)
--- NOTE | 2017-12-25 17:04 | ECHRPT ---
Indication: ATRIAL FIB W/RVR CONCLUSIONS Normal left ventricular size. Wall thickness is normal. The left ventricular systolic function is hyperdynamic with an estimated ejection fraction in the ra nge of 65- 70%. The left atrial size is [id number] dilated. The right atrial size is mildly dilated. No atrial level shunt is demonstrated by color flow Doppler interrogation. Moderate mitral valve regurgitation. Mild mitral annular calcification. There is moderate tricuspid regurgitation. The estimated pulmonary arterial pressure is 59 mmHg. Mild pulmonary valve regurgitation. BP: 117 / 57 HR: 106 Rhythm: Sinus MEASUREMENTS (Male / Female) Normal Values Technical Quality:Fair 2D ECHO LV Diastolic Diameter PLAX 3.7 cm 4.2 - 5.9 / 3.9 - 5.3 cm LV Systolic Diameter PLAX 2.5 cm IVS Diastolic Thickness 1.0 cm 0.6 - 1.0 / 0.6 - 0.9 cm LVPW Diastolic Thickness 1.0 cm 0.6 - 1.0 / 0.6 - 0.9 cm LV Relative Wall Thickness 0.5 RV Internal Dim ED PLAX 3.5 cm LVOT Diameter 2.0 cm Aortic Root Diameter 3.7 cm LA Systolic Diameter LX 4.3 cm 3.0 - 4.0 / 2.7 - 3.8 cm M-MODE AV Cusp Separation MM 1.7 cm DOPPLER LVOT Peak Velocity 60.6 cm/s LVOT Peak Gradient 1.5 mmHg LVOT Velocity Time Integral 6.7 cm Mitral E Point Velocity 96.0 cm/s LV E' Lateral Velocity 9.4 cm/s Mitral E to LV E' Lateral Ratio 10.3 LV E' Septal Velocity 6.9 cm/s Mitral E to LV E' Septal Ratio 13.9 TR Peak Velocity 350.0 cm/s TR Peak Gradient 49.0 mmHg Right Atrial Pressure 10.0 mmHg Pulmonary Artery Systolic Pressu 59.0 mmHg Right Ventricular Systolic Press 59.0 mmHg PV Peak Velocity 38.1 cm/s PV Peak Gradient 0.6 mmHg FINDINGS LEFT VENTRICLE Normal left ventricular size. Wall thickness is normal. The left ventricular systolic function is hyperdynamic with an estimated ejection fraction in the ra nge of 65- 70%. RIGHT VENTRICLE Normal right ventricular size and systolic function. LEFT ATRIUM The left atrial size is [id number] dilated. RIGHT ATRIUM The right atrial size is mildly dilated. ATRIAL SEPTUM No atrial level shunt is demonstrated by color flow Doppler interrogation. AORTA The aortic root and proximal ascending aorta are normal in size on limited imaging. MITRAL VALVE Moderate mitral valve regurgitation. Mild mitral annular calcification. AORTIC VALVE Trileaflet aortic valve. No aortic valve stenosis or regurgitation. TRICUSPID VALVE There is moderate tricuspid regurgitation. The estimated pulmonary arterial pressure is 59 mmHg. PULMONARY VALVE Mild pulmonary valve regurgitation. Jaun Colvin MD, FACC (Electronically Signed) Final Date:25 December 2017 17:03
[2017-12-26] VITALS (30 sets, daily range): BP systolic 111–124; BP diastolic 43–84; PULSE 69–122; RESP 16–24; TEMP 97.8–98.6; O2SAT 94–96
[2017-12-26] MEDS: DILTIAZEM HCL 60 MG TAB PO SCH ×3 (05:26→17:19)
--- NOTE | 2017-12-26 08:39 | PD.CARD.PN ---
Subjective Subjective Remarks feeling well overnight, no chest pain, sob or palpitations. Objective Medications Current Medications Medications (Trade) Dose Ordered Sig/Antonella Route Start Time Stop Time Status Last Admin (NS Flush) 2 ml UNSCH PRN IV FLUSH 12/24/17 03:00 (NS Flush) 2 ml BID IV FLUSH 12/24/17 09:00 12/25/17 21:00 (Ativan) 1 mg Q12H PRN PO 12/24/17 08:00 (Zoloft) 25 mg DAILY PO 12/24/17 09:00 12/25/17 08:49 (Coumadin) 5 mg DAILY@1600 PO 12/24/17 16:00 12/25/17 15:46 (Lasix Inj) 20 mg DAILY IV PUSH 12/24/17 11:45 12/25/17 08:52 (Lanoxin) 0.125 mg DAILY PO 12/25/17 09:00 12/25/17 08:49 (Aspirin) 325 mg DAILY PO 12/25/17 09:00 12/25/17 08:49 (Cardizem) 60 mg Q6HR PO 12/25/17 12:00 12/26/17 05:26 Vital Signs / I&O Vital Signs Date Time Temp Pulse Resp B/P (MAP) Pulse Ox O2 Delivery O2 Flow Rate FiO2 12/26/17 06:00 110 12/26/17 05:00 101 12/26/17 04:00 103 12/26/17 03:06 98.1 102 24 116/43 (67) 96 12/26/17 03:00 105 12/26/17 02:00 102 12/26/17 01:00 110 12/26/17 00:00 122 12/25/17 23:25 98.3 117 24 128/76 (93) 96 12/25/17 23:00 104 12/25/17 22:00 102 12/25/17 21:00 100 12/25/17 20:00 96 12/25/17 19:31 96 Room Air 12/25/17 19:26 97.7 103 18 119/69 (86) 96 12/25/17 19:00 89 12/25/17 18:00 92 12/25/17 17:22 94 21 12/25/17 17:00 98 12/25/17 16:59 112 110/69 (83) 94 12/25/17 16:00 107 12/25/17 15:00 97.0 108 18 125/78 (94) 95 12/25/17 15:00 112 12/25/17 14:00 102 12/25/17 13:00 109 12/25/17 12:00 107 12/25/17 11:00 101 12/25/17 11:00 97.6 112 18 134/84 (101) 94 12/25/17 10:00 114 12/25/17 09:00 104 I/O 12/25/17 12/25/17 12/25/17 12/26/17 12/26/17 12/26/17 07:00 15:00 23:00 07:00 15:00 23:00 Intake Total 200 ml 105 ml 640 ml 720 ml Output Total 200 ml 750 ml 100 ml Balance 0 ml 105 ml -110 ml 620 ml Intake Oral 200 ml 640 ml 720 ml IV Total 105 ml Output Urine Total 200 ml 750 ml 100 ml # Voids 2 Physical Exam GENERAL: SKIN: Warm and dry. HEAD: Atraumatic. Normocephalic. EYES: Pupils equal and round. No scleral icterus. No injection or drainage. ENT: No nasal bleeding or discharge. NECK: Trachea midline. No JVD. CARDIOVASCULAR: tachycardic, irregular rate and rhythm, +systolic murmur RESPIRATORY: No accessory muscle use. Clear to auscultation. Breath sounds equal bilaterally. GASTROINTESTINAL: Abdomen soft, non-tender, nondistended. MUSCULOSKELETAL: Extremities without clubbing, cyanosis, or edema. No obvious deformities. NEUROLOGICAL: Awake and alert. No obvious cranial nerve deficits. Normal speech. PSYCHIATRIC: Appropriate mood and affect; insight and judgment normal. Assessment and Plan Problem List: (1) Atrial fibrillation with RVR ICD Codes: I48.91 - Unspecified atrial fibrillation Status: Acute Assessment and Plan 87 yo AAF with HTN, HLD, mitral regurgitation and afib presented with anterior chest discomfort and palpitations found to be in afib rvr. atrial fibrillation- rate remains elevated. cont cardizem and digoxin. Due to low BP will avoid increasing dose of Cardizem or adding bb/ACEi. check updated digoxin level, consider dose increase if dig level 1.4 or less. could consider PPM with AVN ablation but she is not a good candidate for invasive procedure at this time and prefer conservative management ambulate as tolerated and watch HR response. cont warfarin, INR subtherapeutic 1.6 elevated troponin- rate related vs. ischemic. patient defers ischemic workup Jess Singh Dec 26, 2017 08:39
[2017-12-26] MEDS: SODIUM CHLORIDE 0.9% FLUSH 10 ML FLUSH IV FLUSH SCH ×2 (09:00→21:10)
[2017-12-26] MEDS: ASPIRIN 325 MG TAB PO SCH (09:03)
[2017-12-26] MEDS: SERTRALINE HCL 50 MG TAB PO SCH (09:03)
[2017-12-26] MEDS: DIGOXIN 0.125 MG TAB PO SCH (09:03)
[2017-12-26] MEDS: FUROSEMIDE 40 MG/4 ML VIAL IV PUSH SCH (09:03)
--- NOTE | 2017-12-26 09:11 | HHI.PR ---
Subjective Remarks no cp was oob to bathroom. Objective Vitals heart irreg lung cta abd s/nt ext no edema Vital Signs Date Time Temp Pulse Resp B/P (MAP) Pulse Ox O2 Delivery O2 Flow Rate FiO2 12/26/17 06:00 110 12/26/17 05:00 101 12/26/17 04:00 103 12/26/17 03:06 98.1 102 24 116/43 (67) 96 12/26/17 03:00 105 12/26/17 02:00 102 12/26/17 01:00 110 12/26/17 00:00 122 12/25/17 23:25 98.3 117 24 128/76 (93) 96 12/25/17 23:00 104 12/25/17 22:00 102 12/25/17 21:00 100 12/25/17 20:00 96 12/25/17 19:31 96 Room Air 12/25/17 19:26 97.7 103 18 119/69 (86) 96 12/25/17 19:00 89 12/25/17 18:00 92 12/25/17 17:22 94 21 12/25/17 17:00 98 12/25/17 16:59 112 110/69 (83) 94 12/25/17 16:00 107 12/25/17 15:00 97.0 108 18 125/78 (94) 95 12/25/17 15:00 112 12/25/17 14:00 102 12/25/17 13:00 109 12/25/17 12:00 107 12/25/17 11:00 101 12/25/17 11:00 97.6 112 18 134/84 (101) 94 12/25/17 10:00 114 Result Diagram: 12/24/17 1331 12/25/17 0533 A/P Problem List: (1) Atrial fibrillation with RVR ICD Codes: I48.91 - Unspecified atrial fibrillation Status: Acute Plan: 1. afib/rvr after coughing on an orange. hypotensive on arrival elevated troponin. initially felt to be demand from afib/rvr. but ?nstemi 2. 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 worsening microcytic anemia. s/p EUA/hysteroscopy, D/C, polypectomy for post menopausal bleeding in 2017 4. anxiety plan consulted her associate professor of criminal justice who is assisting with rate control . pt refused ischemic w/up bb stopped due to hypotension. cont ccb and dig. titrate up as still with rvr. limited by bp discussed with dr Colvin. check dig level. possible increase to .25mg per day. ambulate and decide on d/c home vs EP consult if necessary. cont asa cont coumadin. check inr check iron studies. venofer if iron def. (2) Elevation of cardiac enzymes ICD Codes: R74.8 - Abnormal levels of other serum enzymes Status: Acute (3) Microcytic anemia ICD Codes: D50.9 - Iron deficiency anemia, unspecified Status: Chronic (4) Breast CA ICD Codes: C50.919 - Malignant neoplasm of unspecified site of unspecified female breast Status: Chronic (5) Anxiety ICD Codes: F41.9 - Anxiety disorder, unspecified Status: Chronic Ruddy Mcdowell MD Dec 26, 2017 09:11
[2017-12-26 09:43] LABS: INTERNATIONAL NORMALIZED RATIO 2.5 RATIO; PROTHROMBIN TIME - PATIENT 25.4 SEC (9.8-11.6)
[2017-12-26] MEDS ORDERED: IRON SUCROSE INJ 100 MG in SODIUM CHLORIDE 0.9% INJ 100 ML IV ONE (10:00)
[2017-12-26 10:02] LABS: BICARBONATE 26.5 MEQ/L (21.0-32.0); CALCIUM 8.4 MG/DL (8.5-10.1); CREATININE 0.9 MG/DL (0.50-1.00)
[2017-12-26 10:18] LABS: DIGOXIN 1.1 NG/ML (0.8-2.0)
[2017-12-26] MEDS ORDERED: DIGOXIN 0.125 MG TAB PO ONE (10:30)
[2017-12-26] MEDS: WARFARIN SOD 5 MG TAB PO SCH (17:20)
[2017-12-27] VITALS (27 sets, daily range): BP systolic 117–135; BP diastolic 69–88; PULSE 67–114; RESP 18–20; TEMP 97.7–98.5; O2SAT 93–98
[2017-12-27] MEDS: DILTIAZEM HCL 60 MG TAB PO SCH ×2 (00:13→05:47)
--- NOTE | 2017-12-27 07:36 | PD.CARD.PN ---
Subjective Subjective Remarks feeling well overnight, no chest pain, sob or palpitations. (Jess Singh) Objective Medications Current Medications Medications (Trade) Dose Ordered Sig/Antonella Route Start Time Stop Time Status Last Admin (NS Flush) 2 ml UNSCH PRN IV FLUSH 12/24/17 03:00 (NS Flush) 2 ml BID IV FLUSH 12/24/17 09:00 12/26/17 21:10 (Ativan) 1 mg Q12H PRN PO 12/24/17 08:00 (Zoloft) 25 mg DAILY PO 12/24/17 09:00 12/26/17 09:03 (Coumadin) 5 mg DAILY@1600 PO 12/24/17 16:00 12/26/17 17:20 (Aspirin) 325 mg DAILY PO 12/25/17 09:00 12/26/17 09:03 (Cardizem) 60 mg Q6HR PO 12/25/17 12:00 12/27/17 05:47 (Lanoxin) 0.25 mg DAILY PO 12/27/17 09:00 Vital Signs / I&O Vital Signs Date Time Temp Pulse Resp B/P (MAP) Pulse Ox O2 Delivery O2 Flow Rate FiO2 12/27/17 06:00 108 12/27/17 05:42 98.1 114 18 120/82 (95) 94 12/27/17 05:00 94 12/27/17 04:00 83 12/27/17 03:00 106 12/27/17 02:06 112 12/27/17 01:00 110 12/27/17 00:11 98.5 67 18 126/74 (91) 95 12/27/17 00:06 83 12/26/17 23:00 102 12/26/17 22:00 100 12/26/17 21:06 97.8 69 20 111/73 (86) 95 12/26/17 21:05 Room Air 12/26/17 21:00 102 12/26/17 20:13 83 12/26/17 19:00 96 12/26/17 18:00 106 12/26/17 17:22 94 21 12/26/17 17:00 113 12/26/17 16:35 98.0 86 16 115/74 (88) 94 12/26/17 16:00 107 12/26/17 15:00 100 12/26/17 14:00 92 12/26/17 13:00 103 12/26/17 12:00 105 12/26/17 11:41 97.9 117 16 124/84 (97) 96 12/26/17 11:00 105 12/26/17 10:00 110 12/26/17 09:00 116 12/26/17 08:10 95 Room Air 12/26/17 08:10 98.6 114 18 119/82 (94) 95 12/26/17 08:00 102 I/O 12/26/17 12/26/17 12/26/17 12/27/17 12/27/17 12/27/17 07:00 15:00 23:00 07:00 15:00 23:00 Intake Total 720 ml 480 ml 600 ml Output Total 100 ml 1300 ml 200 ml Balance 620 ml -820 ml 400 ml Intake Oral 720 ml 480 ml 600 ml Output Urine Total 100 ml 1300 ml 200 ml # Voids 2 1 Physical Exam GENERAL: SKIN: Warm and dry. HEAD: Atraumatic. Normocephalic. EYES: Pupils equal and round. No scleral icterus. No injection or drainage. ENT: No nasal bleeding or discharge. NECK: Trachea midline. No JVD. CARDIOVASCULAR: tachycardic, irregular rate and rhythm, +systolic murmur RESPIRATORY: No accessory muscle use. Clear to auscultation. Breath sounds equal bilaterally. GASTROINTESTINAL: Abdomen soft, non-tender, nondistended. MUSCULOSKELETAL: Extremities without clubbing, cyanosis, or edema. No obvious deformities. NEUROLOGICAL: Awake and alert. No obvious cranial nerve deficits. Normal speech. PSYCHIATRIC: Appropriate mood and affect; insight and judgment normal. Laboratory Laboratory Tests Test 12/26/17 09:18 Prothrombin Time 25.4 SEC Prothromb Time International Ratio 2.5 RATIO Blood Urea Nitrogen 12 MG/DL Creatinine 0.90 MG/DL Random Glucose 102 MG/DL Calcium Level 8.4 MG/DL Sodium Level 140 MEQ/L Potassium Level 3.7 MEQ/L Chloride Level 104 MEQ/L Carbon Dioxide Level 26.5 MEQ/L Anion Gap 10 MEQ/L Estimat Glomerular Filtration Rate 72 ML/MIN Digoxin Level 1.1 NG/ML (Jess Singh) Assessment and Plan Problem List: (1) Atrial fibrillation with RVR ICD Codes: I48.91 - Unspecified atrial fibrillation Status: Acute Assessment and Plan 87 yo AAF with HTN, HLD, mitral regurgitation and afib presented with anterior chest discomfort and palpitations found to be in afib rvr. atrial fibrillation- rate remains elevated. digoxin increased to 0.25mg yesterday. SBP improved; will reintroduce low dose metoprolol 25mg BID could consider PPM with AVN ablation but she is not a good candidate for invasive procedure at this time and prefer conservative management ambulate as tolerated and watch HR response. cont warfarin, INR therapeutic 2.5 elevated troponin- rate related vs. ischemic. patient defers ischemic workup discharge planning will sign off, contact with questions (Jess Singh) Assessment and Plan Change Diltiazem to Cardizem CD 120 mg bid continue digoxin at only 0.125mg daily metoprolol 25mg bid coumadin for chronic AC INR 2-3 (Omega Valdes DO) Jess Singh Dec 27, 2017 07:36 Omega Valdes DO Dec 27, 2017 08:47
[2017-12-27] MEDS ORDERED: DIGOXIN 0.25 MG TAB PO SCH (09:00)
--- NOTE | 2017-12-27 09:16 | HHI.PR ---
Subjective Remarks no cp or sob Objective Vitals heart irreg lung cta abd s/nt ext no edema Vital Signs Date Time Temp Pulse Resp B/P (MAP) Pulse Ox O2 Delivery O2 Flow Rate FiO2 12/27/17 08:03 95 21 12/27/17 08:00 106 12/27/17 08:00 98.4 83 20 119/80 (93) 94 12/27/17 07:00 106 12/27/17 06:00 108 12/27/17 05:42 98.1 114 18 120/82 (95) 94 12/27/17 05:00 94 12/27/17 04:00 83 12/27/17 03:00 106 12/27/17 02:06 112 12/27/17 01:00 110 12/27/17 00:11 98.5 67 18 126/74 (91) 95 12/27/17 00:06 83 12/26/17 23:00 102 12/26/17 22:00 100 12/26/17 21:06 97.8 69 20 111/73 (86) 95 12/26/17 21:05 Room Air 12/26/17 21:00 102 12/26/17 20:13 83 12/26/17 19:00 96 12/26/17 18:00 106 12/26/17 17:22 94 21 12/26/17 17:00 113 12/26/17 16:35 98.0 86 16 115/74 (88) 94 12/26/17 16:00 107 12/26/17 15:00 100 12/26/17 14:00 92 12/26/17 13:00 103 12/26/17 12:00 105 12/26/17 11:41 97.9 117 16 124/84 (97) 96 12/26/17 11:00 105 12/26/17 10:00 110 Result Diagram: 12/24/17 1331 12/26/17 0918 A/P Problem List: (1) Atrial fibrillation with RVR ICD Codes: I48.91 - Unspecified atrial fibrillation Status: Acute Plan: 1. afib/rvr after coughing on an orange. hypotensive on arrival elevated troponin. initially felt to be demand from afib/rvr. but ?nstemi 2. 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 worsening microcytic anemia. s/p EUA/hysteroscopy, D/C, polypectomy for post menopausal bleeding in 2017 4. anxiety plan consulted her structural fitter who is assisting with rate control . pt refused ischemic w/up persistent rvr with exertion. cont dig .25, convert to cardizem cd and add low dose bb. cont coumadin will call son today dc once rate controlled venofer if iron def. (2) Elevation of cardiac enzymes ICD Codes: R74.8 - Abnormal levels of other serum enzymes Status: Acute (3) Microcytic anemia ICD Codes: D50.9 - Iron deficiency anemia, unspecified Status: Chronic (4) Breast CA ICD Codes: C50.919 - Malignant neoplasm of unspecified site of unspecified female breast Status: Chronic (5) Anxiety ICD Codes: F41.9 - Anxiety disorder, unspecified Status: Chronic Ruddy Mcdowell MD Dec 27, 2017 09:16
[2017-12-27] MEDS: ASPIRIN 325 MG TAB PO SCH (09:57)
[2017-12-27] MEDS: DILTIAZEM-CD 120 MG CAP ER PO SCH ×2 (09:58→20:49)
[2017-12-27] MEDS: SERTRALINE HCL 50 MG TAB PO SCH (09:59)
[2017-12-27] MEDS: METOPROLOL TARTRATE 25 MG TAB PO SCH ×2 (09:59→20:49)
[2017-12-27] MEDS: DIGOXIN 0.125 MG TAB PO SCH (09:59)
[2017-12-27] MEDS: SODIUM CHLORIDE 0.9% FLUSH 10 ML FLUSH IV FLUSH SCH ×2 (10:04→20:49)
[2017-12-27] MEDS ORDERED: LACTULOSE SYRUP 20 GM/30 ML CUP PO PRN (16:00)
[2017-12-27] MEDS ORDERED: BISACODYL EC 5 MG TABEC PO PRN (16:00)
[2017-12-27] MEDS ORDERED: DOCUSATE SODIUM 100 MG CAP PO ONE (16:00)
[2017-12-27] MEDS ORDERED: BISACODYL EC 5 MG TABEC PO ONE (16:00)
[2017-12-27] MEDS: WARFARIN SOD 5 MG TAB PO SCH (17:07)
[2017-12-27] MEDS: DOCUSATE SODIUM 100 MG CAP PO SCH (20:50)
[2017-12-28] VITALS (26 sets, daily range): BP systolic 115–147; BP diastolic 63–88; PULSE 64–104; RESP 16–20; TEMP 97.8–98.6; O2SAT 95–100
--- NOTE | 2017-12-28 07:33 | PD.CARD.PN ---
Subjective Subjective Remarks feeling well overnight, no chest pain, sob or palpitations. HR remains 90- 110bpm while awake. (Jess Singh) Objective Medications Current Medications Medications (Trade) Dose Ordered Sig/Antonella Route Start Time Stop Time Status Last Admin (NS Flush) 2 ml UNSCH PRN IV FLUSH 12/24/17 03:00 (NS Flush) 2 ml BID IV FLUSH 12/24/17 09:00 12/27/17 20:49 (Ativan) 1 mg Q12H PRN PO 12/24/17 08:00 (Zoloft) 25 mg DAILY PO 12/24/17 09:00 12/27/17 09:59 (Coumadin) 5 mg DAILY@1600 PO 12/24/17 16:00 12/27/17 17:07 (Aspirin) 325 mg DAILY PO 12/25/17 09:00 12/27/17 09:57 (Lopressor) 25 mg Q12HR PO 12/27/17 09:00 12/27/17 20:49 (Lanoxin) 0.125 mg DAILY PO 12/27/17 09:00 12/27/17 09:59 (Cardizem Cd) 120 mg BID PO 12/27/17 09:00 12/27/17 20:49 (Dulcolax Ec) 10 mg DAILY PRN PO 12/27/17 16:00 (Colace) 100 mg BID PO 12/27/17 21:00 (Lactulose Liq) 30 ml DAILY PRN PO 12/27/17 16:00 Vital Signs / I&O Vital Signs Date Time Temp Pulse Resp B/P (MAP) Pulse Ox O2 Delivery O2 Flow Rate FiO2 12/28/17 05:43 104 12/28/17 05:00 96 12/28/17 04:00 98.6 98 20 136/76 (96) 97 12/28/17 04:00 88 12/28/17 04:00 Room Air 12/28/17 02:00 88 12/28/17 01:00 82 12/28/17 00:00 79 12/28/17 00:00 Room Air 12/28/17 00:00 97.8 76 20 127/86 (100) 97 12/27/17 23:00 72 12/27/17 22:00 74 12/27/17 21:00 76 12/27/17 20:00 93 12/27/17 20:00 98.1 111 18 135/88 (104) 93 12/27/17 20:00 93 Room Air 12/27/17 19:00 74 12/27/17 18:00 72 12/27/17 17:00 70 12/27/17 16:00 74 12/27/17 15:00 72 12/27/17 15:00 98.3 88 18 121/75 (90) 96 12/27/17 14:00 88 12/27/17 13:00 84 12/27/17 12:00 86 12/27/17 11:00 97.7 86 20 117/69 (85) 98 12/27/17 11:00 88 12/27/17 10:00 84 12/27/17 09:00 83 12/27/17 08:03 95 21 12/27/17 08:00 93 Room Air 12/27/17 08:00 106 12/27/17 08:00 98.4 83 20 119/80 (93) 94 I/O 12/27/17 12/27/17 12/27/17 12/28/17 12/28/17 12/28/17 07:00 15:00 23:00 07:00 15:00 23:00 Intake Total 600 ml 580 ml 240 ml Output Total 200 ml 650 ml 800 ml Balance 400 ml -70 ml -560 ml Intake Oral 600 ml 580 ml 240 ml Output Urine Total 200 ml 650 ml 800 ml # Voids 1 # Bowel Movements 2 Physical Exam GENERAL: SKIN: Warm and dry. HEAD: Atraumatic. Normocephalic. EYES: Pupils equal and round. No scleral icterus. No injection or drainage. ENT: No nasal bleeding or discharge. NECK: Trachea midline. No JVD. CARDIOVASCULAR: tachycardic, irregular rate and rhythm, +systolic murmur RESPIRATORY: No accessory muscle use. Clear to auscultation. Breath sounds equal bilaterally. GASTROINTESTINAL: Abdomen soft, non-tender, nondistended. MUSCULOSKELETAL: Extremities without clubbing, cyanosis, or edema. No obvious deformities. NEUROLOGICAL: Awake and alert. No obvious cranial nerve deficits. Normal speech. PSYCHIATRIC: Appropriate mood and affect; insight and judgment normal. Laboratory Laboratory Tests Test 12/27/17 08:27 Digoxin Level 1.1 NG/ML (Jess Singh) Assessment and Plan Problem List: (1) Atrial fibrillation with RVR ICD Codes: I48.91 - Unspecified atrial fibrillation Status: Acute Assessment and Plan 87 yo AAF with HTN, HLD, mitral regurgitation and afib presented with anterior chest discomfort and palpitations found to be in afib rvr. atrial fibrillation- rate remains elevated. cont Cardizem CD 120mg BID and digoxin 0.125mg patient reports feeling lightheaded yesterday while ambulating. fluid bolus given today; check labs consider increasing metoprolol dose could consider PPM with AVN ablation but she is not a good candidate for invasive procedure at this time and prefer conservative management cont warfarin, INR therapeutic 2.5 elevated troponin- rate related vs. ischemic. patient defers ischemic workup (Jess Singh) Assessment and Plan Afib RVR with rate modestly controlled. increase metoprolol today. (Omega Valdes DO) Jess Singh Dec 28, 2017 07:33 Omega Valdes DO Dec 29, 2017 09:31
[2017-12-28] MEDS ORDERED: SODIUM CHLORID 0.9% 500 ML INJ 500 ML IV SCH (07:45)
[2017-12-28] MEDS ORDERED: METOPROLOL TARTRATE 25 MG TAB PO SCH ×2 (09:00)
[2017-12-28] MEDS: DOCUSATE SODIUM 100 MG CAP PO SCH ×2 (09:00→21:00)
--- NOTE | 2017-12-28 10:26 | HHI.PR ---
Subjective Remarks pt thinks her dizziness is medication related. also reports dry mouth and with recent iv lasix could be dehydrated Objective Vitals heart irreg lung cta abd s/nt ext no edema Vital Signs Date Time Temp Pulse Resp B/P (MAP) Pulse Ox O2 Delivery O2 Flow Rate FiO2 12/28/17 08:00 95 Room Air 12/28/17 08:00 98.3 90 20 147/81 (103) 95 12/28/17 08:00 90 12/28/17 07:00 98 12/28/17 05:43 104 12/28/17 05:00 96 12/28/17 04:00 98.6 98 20 136/76 (96) 97 12/28/17 04:00 88 12/28/17 04:00 Room Air 12/28/17 02:00 88 12/28/17 01:00 82 12/28/17 00:00 79 12/28/17 00:00 Room Air 12/28/17 00:00 97.8 76 20 127/86 (100) 97 12/27/17 23:00 72 12/27/17 22:00 74 12/27/17 21:00 76 12/27/17 20:00 93 12/27/17 20:00 98.1 111 18 135/88 (104) 93 12/27/17 20:00 93 Room Air 12/27/17 19:00 74 12/27/17 18:00 72 12/27/17 17:00 70 12/27/17 16:00 74 12/27/17 15:00 72 12/27/17 15:00 98.3 88 18 121/75 (90) 96 12/27/17 14:00 88 12/27/17 13:00 84 12/27/17 12:00 86 12/27/17 11:00 97.7 86 20 117/69 (85) 98 12/27/17 11:00 88 Result Diagram: 12/24/17 1331 12/26/17 0918 A/P Problem List: (1) Atrial fibrillation with RVR ICD Codes: I48.91 - Unspecified atrial fibrillation Status: Acute Plan: 1. afib/rvr after coughing on an orange. hypotensive on arrival elevated troponin. initially felt to be demand from afib/rvr. but ?nstemi 2. 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 worsening microcytic anemia. s/p EUA/hysteroscopy, D/C, polypectomy for post menopausal bleeding in 2017 4. anxiety plan consulted her weighter who is assisting with rate control . pt refused ischemic w/up pt on bid cardizem 120mg, dig .25mg, and metoprolol 25mg bid still some breakthrough rvr pt c/o dizziness check bmp for dehydration. lasix on hold. give small fluid bolus and ambulate cont coumadin venofer if iron def. (2) Elevation of cardiac enzymes ICD Codes: R74.8 - Abnormal levels of other serum enzymes Status: Acute (3) Microcytic anemia ICD Codes: D50.9 - Iron deficiency anemia, unspecified Status: Chronic (4) Breast CA ICD Codes: C50.919 - Malignant neoplasm of unspecified site of unspecified female breast Status: Chronic (5) Anxiety ICD Codes: F41.9 - Anxiety disorder, unspecified Status: Chronic Ruddy Mcdowell MD Dec 28, 2017 10:26
[2017-12-28] MEDS: SERTRALINE HCL 50 MG TAB PO SCH (10:43)
[2017-12-28] MEDS: ASPIRIN 325 MG TAB PO SCH (10:44)
[2017-12-28] MEDS: DIGOXIN 0.125 MG TAB PO SCH (10:44)
[2017-12-28] MEDS: SODIUM CHLORIDE 0.9% FLUSH 10 ML FLUSH IV FLUSH SCH ×2 (10:44→21:33)
[2017-12-28] MEDS: DILTIAZEM-CD 120 MG CAP ER PO SCH ×2 (10:44→21:32)
[2017-12-28 12:33] LABS: INTERNATIONAL NORMALIZED RATIO 5.6 RATIO; PROTHROMBIN TIME - PATIENT 56.1 SEC (9.8-11.6)
[2017-12-28 21:07] LABS: BICARBONATE 23.4 MEQ/L (21.0-32.0); CALCIUM 8.4 MG/DL (8.5-10.1); CREATININE 0.76 MG/DL (0.50-1.00)
[2017-12-28] MEDS: METOPROLOL TARTRATE 50 MG TAB PO SCH (21:32)
[2017-12-29] VITALS (25 sets, daily range): BP systolic 100–131; BP diastolic 62–86; PULSE 63–96; RESP 16–20; TEMP 97.5–98.8; O2SAT 96–97
[2017-12-29 04:34] LABS: PROTHROMBIN TIME - PATIENT 63.3 SEC (9.8-11.6)
[2017-12-29 04:46] LABS: BICARBONATE 26.3 MEQ/L (21.0-32.0); CREATININE 0.74 MG/DL (0.50-1.00)
[2017-12-29 05:13] LABS: INTERNATIONAL NORMALIZED RATIO 6.3 RATIO
[2017-12-29] MEDS ORDERED: POTASSIUM CHLORIDE 20 MEQ CONTROLLED RELEASE TAB PO ONE ×2 (07:15→09:30)
--- NOTE | 2017-12-29 08:34 | PD.CARD.PN ---
Subjective Subjective Remarks feeling well overnight, no chest pain, sob or palpitations. HR remains elevated. (Jess Singh) Objective Medications Current Medications Medications (Trade) Dose Ordered Sig/Antonella Route Start Time Stop Time Status Last Admin (NS Flush) 2 ml UNSCH PRN IV FLUSH 12/24/17 03:00 (NS Flush) 2 ml BID IV FLUSH 12/24/17 09:00 12/28/17 21:33 (Ativan) 1 mg Q12H PRN PO 12/24/17 08:00 (Zoloft) 25 mg DAILY PO 12/24/17 09:00 12/28/17 10:43 (Aspirin) 325 mg DAILY PO 12/25/17 09:00 12/28/17 10:44 (Lanoxin) 0.125 mg DAILY PO 12/27/17 09:00 12/28/17 10:44 (Cardizem Cd) 120 mg BID PO 12/27/17 09:00 12/28/17 21:32 (Dulcolax Ec) 10 mg DAILY PRN PO 12/27/17 16:00 (Colace) 100 mg BID PO 12/27/17 21:00 (Lactulose Liq) 30 ml DAILY PRN PO 12/27/17 16:00 (Lopressor) 50 mg Q12HR PO 12/28/17 21:00 12/28/17 21:32 Vital Signs / I&O Vital Signs Date Time Temp Pulse Resp B/P (MAP) Pulse Ox O2 Delivery O2 Flow Rate FiO2 12/29/17 07:15 98.8 96 18 130/86 (101) 97 12/29/17 06:00 86 12/29/17 05:00 74 12/29/17 04:00 76 12/29/17 03:15 96 16 108/66 (80) 97 12/29/17 03:00 69 12/29/17 02:00 76 12/29/17 01:00 70 12/29/17 00:00 72 12/28/17 23:39 95 16 115/63 (80) 98 12/28/17 23:00 64 12/28/17 22:00 86 12/28/17 21:00 96 12/28/17 20:00 94 12/28/17 19:50 99 Room Air 12/28/17 19:50 98.2 81 16 144/88 (106) 99 12/28/17 19:00 77 12/28/17 18:00 84 12/28/17 17:00 88 12/28/17 16:00 82 12/28/17 15:00 98.2 72 20 130/82 (98) 100 12/28/17 15:00 84 12/28/17 14:00 82 12/28/17 13:52 99 12/28/17 13:00 84 12/28/17 12:00 98.0 90 20 117/77 (90) 100 12/28/17 12:00 90 12/28/17 11:00 84 12/28/17 10:00 90 12/28/17 09:00 100 I/O 12/28/17 12/28/17 12/28/17 12/29/17 12/29/17 12/29/17 07:00 15:00 23:00 07:00 15:00 23:00 Intake Total 240 ml 1150 ml 480 ml Output Total 800 ml 650 ml Balance -560 ml 1150 ml -170 ml Intake Oral 240 ml 650 ml 480 ml IV Total 500 ml Output Urine Total 800 ml 650 ml # Bowel Movements 2 0 Physical Exam GENERAL: SKIN: Warm and dry. HEAD: Atraumatic. Normocephalic. EYES: Pupils equal and round. No scleral icterus. No injection or drainage. ENT: No nasal bleeding or discharge. NECK: Trachea midline. No JVD. CARDIOVASCULAR: tachycardic, irregular rate and rhythm, +systolic murmur RESPIRATORY: No accessory muscle use. Clear to auscultation. Breath sounds equal bilaterally. GASTROINTESTINAL: Abdomen soft, non-tender, nondistended. MUSCULOSKELETAL: Extremities without clubbing, cyanosis, or edema. No obvious deformities. NEUROLOGICAL: Awake and alert. No obvious cranial nerve deficits. Normal speech. PSYCHIATRIC: Appropriate mood and affect; insight and judgment normal. Laboratory Laboratory Tests Test 12/28/17 10:10 12/28/17 11:57 12/29/17 03:33 Blood Urea Nitrogen 11 MG/DL 9 MG/DL Creatinine 0.76 MG/DL 0.74 MG/DL Random Glucose 87 MG/DL 130 MG/DL Calcium Level 8.4 MG/DL 8.0 MG/DL Sodium Level 143 MEQ/L 141 MEQ/L Potassium Level 3.6 MEQ/L 3.4 MEQ/L Chloride Level 107 MEQ/L 105 MEQ/L Carbon Dioxide Level 23.4 MEQ/L 26.3 MEQ/L Anion Gap 13 MEQ/L 10 MEQ/L Estimat Glomerular Filtration Rate 87 ML/MIN 90 ML/MIN Prothrombin Time 56.1 SEC 63.3 SEC Prothromb Time International Ratio 5.6 RATIO 6.3 RATIO (Jess Singh) Assessment and Plan Problem List: (1) Atrial fibrillation with RVR ICD Codes: I48.91 - Unspecified atrial fibrillation Status: Acute Assessment and Plan 87 yo AAF with HTN, HLD, mitral regurgitation and afib presented with anterior chest discomfort and palpitations found to be in afib rvr. atrial fibrillation- rate remains elevated. cont Cardizem CD 120mg BID and digoxin 0.125mg metoprolol increased to 50mg BID yesterday, patient tolerating dose well but hasn't been ambulating. recommend she start ambulating with assistance to see if how she feels. she reports feeling lightheaded with metoprolol in the past. could consider PPM with AVN ablation but she is not a good candidate for invasive procedure at this time and prefer conservative management INR supratherapeutic 6.3; warfarin being held. may be a candidate for NOAC? elevated troponin- rate related vs. ischemic. patient defers ischemic workup (Jess Singh) Assessment and Plan AFib with RVR: rate better controlled on current regimen. Will have RN ambulate and if HR < 120 would d/c if INR is downtrending, Resume coumadin in 2 days with outpatinet INR check. f/u in [address] outpatient [address] Dr Moralez (Omega Valdes DO) Jess Singh Dec 29, 2017 08:34 Omega Valdes DO Dec 29, 2017 09:27
--- NOTE | 2017-12-29 08:37 | HHI.PR ---
Subjective Remarks wasn't oob yesterday. Objective Vitals heart irreg lung cta abd s/nt ext no edema Vital Signs Date Time Temp Pulse Resp B/P (MAP) Pulse Ox O2 Delivery O2 Flow Rate FiO2 12/29/17 07:15 98.8 96 18 130/86 (101) 97 12/29/17 06:00 86 12/29/17 05:00 74 12/29/17 04:00 76 12/29/17 03:15 96 16 108/66 (80) 97 12/29/17 03:00 69 12/29/17 02:00 76 12/29/17 01:00 70 12/29/17 00:00 72 12/28/17 23:39 95 16 115/63 (80) 98 12/28/17 23:00 64 12/28/17 22:00 86 12/28/17 21:00 96 12/28/17 20:00 94 12/28/17 19:50 99 Room Air 12/28/17 19:50 98.2 81 16 144/88 (106) 99 12/28/17 19:00 77 12/28/17 18:00 84 12/28/17 17:00 88 12/28/17 16:00 82 12/28/17 15:00 98.2 72 20 130/82 (98) 100 12/28/17 15:00 84 12/28/17 14:00 82 12/28/17 13:52 99 12/28/17 13:00 84 12/28/17 12:00 98.0 90 20 117/77 (90) 100 12/28/17 12:00 90 12/28/17 11:00 84 12/28/17 10:00 90 12/28/17 09:00 100 Result Diagram: 12/29/17 0333 A/P Problem List: (1) Atrial fibrillation with RVR ICD Codes: I48.91 - Unspecified atrial fibrillation Status: Acute Plan: 1. afib/rvr after coughing on an orange. hypotensive on arrival elevated troponin. initially felt to be demand from afib/rvr. but ?nstemi 2. 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 worsening microcytic anemia. s/p EUA/hysteroscopy, D/C, polypectomy for post menopausal bleeding in 2017 4. anxiety plan consulted her costume rental clerk who is assisting with rate control . pt refused ischemic w/up pt on bid cardizem 120mg, dig .25mg, and metoprolol 25mg bid still some breakthrough rvr pt c/o dizzines yesterday. ambulate today and reassess coumadin on hold despite being on her home regimen inr is 6.2...discussed with cardiology. venofer if iron def. (2) Elevation of cardiac enzymes ICD Codes: R74.8 - Abnormal levels of other serum enzymes Status: Acute (3) Microcytic anemia ICD Codes: D50.9 - Iron deficiency anemia, unspecified Status: Chronic (4) Breast CA ICD Codes: C50.919 - Malignant neoplasm of unspecified site of unspecified female breast Status: Chronic (5) Anxiety ICD Codes: F41.9 - Anxiety disorder, unspecified Status: Chronic Ruddy Mcdowell MD Dec 29, 2017 08:37
[2017-12-29] MEDS: DILTIAZEM-CD 120 MG CAP ER PO SCH ×2 (08:39→20:37)
[2017-12-29] MEDS: SODIUM CHLORIDE 0.9% FLUSH 10 ML FLUSH IV FLUSH SCH ×2 (08:39→20:40)
[2017-12-29] MEDS: METOPROLOL TARTRATE 50 MG TAB PO SCH ×2 (08:39→20:38)
[2017-12-29] MEDS: DIGOXIN 0.125 MG TAB PO SCH (08:40)
[2017-12-29] MEDS: SERTRALINE HCL 50 MG TAB PO SCH (08:40)
[2017-12-29] MEDS: ASPIRIN 325 MG TAB PO SCH (08:40)
[2017-12-29] MEDS: DOCUSATE SODIUM 100 MG CAP PO SCH ×2 (08:41→20:40)
--- NOTE | 2017-12-29 10:30 | HHI.DCPOC ---
Discharge Care Plan Diagnosis: (1) Atrial fibrillation with RVR Goals to Promote Your Health * To prevent worsening of your condition and complications * To maintain your health at the optimal level Directions to Meet Your Goals Take your medications as prescribed Follow your dietary instruction Follow activity as directed Keep your appointments as scheduled Take your immunizations and boosters as scheduled If your symptoms worsen call your PCP, if no PCP go to Urgent Care Center or Emergency Room Smoking is Dangerous to Your Health. Avoid second hand smoke Call the 24-hour hour crisis hotline for domestic abuse at Ruddy Mcdowell MD Dec 29, 2017 10:30
--- NOTE | 2017-12-29 10:31 | HHI.FF ---
Face to Face Verification Diagnosis: (1) Atrial fibrillation with RVR (2) Breast CA Physical Therapy Order: Evaluate and Treat, Improve ambulation Home Health Nursing Order: Medical education Signs/symptoms of disease process Medication education-adverse effect Nursing assessment with vital signs Instructions: check inr 12/31 and 01/02. notify Dr Romel Moralez cardiology office with results. Cotton Classer Aide Order: To Evaluate: Living conditions/environment, Support services Order: To Provide: Long range planning I have seen patient Beth Pro on 12/29/17. My clinical findings support the need for the requested home health care services because: Limited ability to care for self I certify that my clinical findings support that this patient is homebound because: Need for psychosocial assistance Ruddy Mcdowell MD Dec 29, 2017 10:31
[2017-12-29 14:00] LABS: PROTHROMBIN TIME - PATIENT 66.9 SEC (9.8-11.6)
[2017-12-29 14:08] LABS: INTERNATIONAL NORMALIZED RATIO 6.7 RATIO
[2017-12-29] MEDS ORDERED: PHYTONADIONE 2.5 MG/SWFI 2.5 ML ORAL SYR PO ONE (14:30)
[2017-12-29] MEDS ORDERED: PHYTONADIONE 5 MG/SWFI 5 ML ORAL SYR PO ONE (14:45)
[2017-12-29] MEDS ORDERED: PILL SPLITTER OTHER PRN (15:00)
[2017-12-30] VITALS (16 sets, daily range): BP systolic 119–135; BP diastolic 72–87; PULSE 71–103; RESP 18; TEMP 98.2–98.4; O2SAT 9–97
[2017-12-30 04:22] LABS: INTERNATIONAL NORMALIZED RATIO 2.3 RATIO; PROTHROMBIN TIME - PATIENT 22.8 SEC (9.8-11.6)
[2017-12-30] MEDS ORDERED: WARFARIN SOD 5 MG TAB PO ONE (07:15)
[2017-12-30] MEDS ORDERED: DIGO0.12 PO (08:48)
[2017-12-30] MEDS ORDERED: DILT120C50 PO (08:48)
[2017-12-30] MEDS: ASPIRIN 325 MG TAB PO SCH (08:49)
[2017-12-30] MEDS: SERTRALINE HCL 50 MG TAB PO SCH (08:50)
[2017-12-30] MEDS: DOCUSATE SODIUM 100 MG CAP PO SCH (08:51)
[2017-12-30] MEDS: METOPROLOL TARTRATE 50 MG TAB PO SCH (08:51)
[2017-12-30] MEDS: DIGOXIN 0.125 MG TAB PO SCH (08:51)
[2017-12-30] MEDS: DILTIAZEM-CD 120 MG CAP ER PO SCH (08:51)
[2017-12-30] MEDS: SODIUM CHLORIDE 0.9% FLUSH 10 ML FLUSH IV FLUSH SCH (08:52)
--- NOTE | 2017-12-30 08:52 | HHI.DS ---
Discharge Summary Admission Date Dec 24, 2017 at 02:48 Discharge Date: Dec 30, 2017 Admitting Diagnosis Afib with RVR, elevated troponin (1) Atrial fibrillation with RVR Diagnosis: Principal ICD Codes: I48.91 - Unspecified atrial fibrillation Status: Acute (2) Elevation of cardiac enzymes Diagnosis: Principal ICD Codes: R74.8 - Abnormal levels of other serum enzymes Status: Acute (3) Microcytic anemia Diagnosis: Principal ICD Codes: D50.9 - Iron deficiency anemia, unspecified Status: Chronic (4) Breast CA Diagnosis: Secondary ICD Codes: C50.919 - Malignant neoplasm of unspecified site of unspecified female breast Status: Chronic (5) Anxiety Diagnosis: Secondary ICD Codes: F41.9 - Anxiety disorder, unspecified Status: Chronic Brief History Pt is 87 yo woman who says she was recently diagnosed with breast ca in right breast and is awaiting lumpectomy. She describes more sob and intermittent cp's and says she was seeing her field machinist Dr Moralez who was going to "run some tests". Last night she failed to chew up an orange and started choking. When EMS arrived she was in afib/rvr 180s. IV diltiazem given and sbp 80s. In ED she was given 3 doses iv metoprolol and one po dose. her ckmb and trop was elevated. She acknowledges intermittent cp's and sob at times. CBC/BMP: 12/29/17 0333 Significant Findings Laboratory Tests Test 12/28/17 10:10 12/28/17 11:57 12/29/17 03:33 12/29/17 13:32 Calcium Level 8.4 MG/DL (8.5-10.1) 8.0 MG/DL (8.5-10.1) Estimat Glomerular Filtration Rate 87 ML/MIN (>89) Prothrombin Time 56.1 SEC (9.8-11.6) 63.3 SEC (9.8-11.6) 66.9 SEC (9.8-11.6) Prothromb Time International Ratio 6.3 RATIO 6.7 RATIO Random Glucose 130 MG/DL (74-106) Potassium Level 3.4 MEQ/L (3.5-5.1) Test 12/30/17 03:31 Prothrombin Time 22.8 SEC (9.8-11.6) Hospital Course A/P Problem List: (1) Atrial fibrillation with RVR ICD Codes: I48.91 - Unspecified atrial fibrillation Status: Acute Plan: 1. afib/rvr after coughing on an orange. hypotensive on arrival elevated troponin. initially felt to be demand from afib/rvr. but most likely nstemi 2. 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 worsening microcytic anemia. s/p EUA/hysteroscopy, D/C, polypectomy for post menopausal bleeding in 2017 4. anxiety plan consulted her field machinist who is assisting with rate control . pt refused ischemic w/up pt on bid cardizem 120mg, dig .125mg, and metoprolol 50 mg bid with good control even with ambulation her inr was elevated and small dose vit k given. inr therapeutic and resume at 5mg per cardiology and will have [facility] inr checks with results and adjustment per cardiology this week. venofer iron given during admission. she is to f/u with her doctors for ongoing management of breast ca (2) Elevation of cardiac enzymes ICD Codes: R74.8 - Abnormal levels of other serum enzymes Status: Acute (3) Microcytic anemia ICD Codes: D50.9 - Iron deficiency anemia, unspecified Status: Chronic (4) Breast CA ICD Codes: C50.919 - Malignant neoplasm of unspecified site of unspecified female breast Status: Chronic (5) Anxiety ICD Codes: F41.9 - Anxiety disorder, unspecified Status: Chronic Pt Condition on Discharge: Stable Discharge Disposition: Disch w/ Home Health Serv Discharge Instructions DIET: Follow Instructions for: Heart Healthy Diet Activities you can perform: Regular-No Restrictions Follow up Referrals: Cardiology - [address] tanika moralez New Medications: Digoxin (Digoxin) 0.125 Mg Tab 0.125 MG PO DAILY for afib, #30 TAB Diltiazem CD 24 HR (Diltiazem CD 24 HR) 120 Mg Caper 120 MG PO BID for afib, #60 CAP Continued Medications: Furosemide (Furosemide) 40 Mg Tab 40 MG PO DAILY PRN for EDEMA, #30 TAB 0 Refills Latanoprost Opth Drops (Xalatan Opth Drops) 0.005% Drops 1 DROP EACH EYE HS for Glaucoma, #2.5 ML 0 Refills Lorazepam (Lorazepam) 2 Mg Tab 2 MG PO BID for ANXIETY, TAB 0 Refills Metoprolol Tartrate (Metoprolol Tartrate) 50 Mg Tab 50 MG PO BID, #60 TAB 0 Refills Sertraline (Sertraline) 25 Mg Tab 25 MG PO DAILY, #30 TAB 0 Refills Warfarin (Warfarin) 5 Mg Tab 5 MG PO DAILY for Blood Clot Prevention, #30 TAB 0 Refills Discontinued Medications: Diltiazem ER 12 HR (Diltiazem ER 12 HR) 120 Mg Caper 180 MG PO BID, #60 CAP 0 Refills Ruddy Mcdowell MD Dec 30, 2017 08:52
== END 2017-12-30 15:44 | disposition home health service (06) | DRG 309 ==
LOC: NEPC 00:47 → NEDA 02:48 → N03A 06:17 → HCIS 17:11
PROVIDERS: ADMIT Hospitalist; ATTEND Hospitalist
DX: I48.91 Unspecified atrial fibrillation (principal); I50.30 Unspecified diastolic (congestive) heart failure; I95.9 Hypotension, unspecified; I11.0 Hypertensive heart disease with heart failure; C50.911 Malignant neoplasm of unspecified site of right female breast; D64.9 Anemia, unspecified; E78.5 Hyperlipidemia, unspecified; F41.9 Anxiety disorder, unspecified; I34.0 Nonrheumatic mitral (valve) insufficiency
CPT/HCPCS: 71045; 76937; 80048; 80053; 80162; 82272; 82550; 82552; 82728; 83540; 83550; 83690; 83735; 83880; 84443; 84484; 85007; 85027; 85610; 85730; 93005; 93306; 94640; 94664; 96374; 96376; J1160; J1756; J1940; J7040